=== PATIENT | male | born 1960 | race American Indian/Alaskan Native ===

== ENCOUNTER 2021-02-13 00:49 | Inpatient (IN) | payer MEDICAID, OTHER ==
[2021-02-13] MEDS ORDERED: Iopamidol 612 MG/ML 100 ML Bottle IVPUSH ONE (01:16)
[2021-02-13] MEDS: Sodium Chloride 0.9% 10 ML Syringe FLUSH PRN (01:30)
[2021-02-13] MEDS ORDERED: HYDROmorphone 0.5 MG/0.5 ML Syringe IVPUSH ONE ×2 (01:35→03:11)
--- NOTE | 2021-02-13 01:42 | EDM.PDOC ---
<Sekou Dickens Sharon - Last Filed: 02/13/21 06:56> ED HPI GENERAL MEDICAL PROBLEM - General Chief Complaint: Skin Complaint Stated Complaint: INGROWN HAIR ON BACK OF THE NECK Time Seen by Provider: 02/13/21 01:35 Source of Information: Reports: Patient History Limitations: Reports: No Limitations - History of Present Illness INITIAL COMMENTS - FREE TEXT/NARRATIVE: 60 y/o M c/o ingrwon hair on the back of his head. Pt went to Dr. Hurd in [place] and was placed on antibitoics (Bactrim) for the abscess today. Pt cannot take the pain tonight and is c/o pain, OROPEZA, subjective fevers. Hx of type II diabetes. Denies vision prob, neck stiffness, jaw pain, cp, db, abd pn, ext pain. Treatments [employer]: Reports: Other Medication(s) Left Posterior Neck Pain Score (Numeric/FACES): 9 - Related Data Allergies Allergy/AdvReac Type Severity Reaction Status Date / Time iodine Allergy Severe Anaphylactic Verified 02/13/21 08:11 Shock shellfish derived Allergy Severe Anaphylactic Verified 02/13/21 08:11 Shock venom-honey bee Allergy Severe Anaphylactic Verified 02/13/21 08:11 [bee venom (honey bee)] Shock Penicillins AdvReac Mild Nausea and Verified 02/13/21 08:11 Vomiting Home Meds: Home Meds Acetaminophen [Tylenol] 2 tab PO Q4H PRN 03/26/15 [History] Aspirin [Ecotrin EC] 81 mg PO DAILY 09/17/15 [History] Alogliptin Benzoate [Alogliptin] 25 mg PO DAILY 01/23/19 [History] Cetirizine HCl 10 mg PO ASDIRECTED PRN 01/23/19 [History] DULoxetine [Cymbalta] 60 mg PO DAILY 01/23/19 [History] Insulin Detemir [Levemir Flextouch] 35 units SQ .MORNING 01/23/19 [History] Losartan [Cozaar] 25 mg PO DAILY 01/23/19 [History] Tamsulosin HCl 0.4 mg PO DAILY 01/23/19 [History] atorvaSTATin Calcium [Atorvastatin Calcium] 10 mg PO DAILY 01/23/19 [History] Famotidine 20 mg PO BID 03/21/19 [History] glipiZIDE [Glucotrol] 5 mg PO BID 02/13/21 [History] Doxycycline [Vibra-Tabs] 100 mg PO BID #14 tab 02/15/21 [Rx] Ibuprofen [Motrin] 600 mg PO Q6H PRN tablet 02/15/21 [Rx] Past Medical History HEENT History: Reports: Impaired Vision, Macular Degeneration Other HEENT History: rhetinopathy per patient report Cardiovascular History: Reports: High Cholesterol, Hypertension Respiratory History: Reports: Asthma Gastrointestinal History: Reports: Chronic Constipation, Diverticulosis, Other (See Below) Other Gastrointestinal History: HEARTBURN Genitourinary History: Reports: Prostate Disorder Musculoskeletal History: Reports: Other (See Below) Other Musculoskeletal History: SCIATIC NERVE PAIN Neurological History: Reports: Neuropathy, Diabetic Psychiatric History: Reports: Addiction, Anxiety, Depression Endocrine/Metabolic History: Reports: Diabetes, Type II Hematologic History: Reports: None Immunologic History: Reports: None Oncologic (Cancer) History: Reports: None Dermatologic History: Reports: None - Past Surgical History HEENT Surgical History: Reports: Tonsillectomy Cardiovascular Surgical History: Reports: None GI Surgical History: Reports: Colonoscopy Social & Family History - Family History Family Medical History: No Pertinent Family History - Caffeine Use Caffeine Use: Reports: Soda ED ROS GENERAL - Review of Systems Review Of Systems: Comprehensive ROS is negative, except as noted in HPI. ED EXAM, SKIN/RASH Exam: See Below Exam Limited By: No Limitations General Appearance: Alert, Mild Distress (appears in pain) Ears: Normal External Exam, Normal Canal, Hearing Grossly Normal, Normal TMs Nose: Normal Inspection, Normal Mucosa, No Blood Throat/Mouth: Normal Inspection, Normal Lips, Normal Teeth, Normal Gums, Normal Oropharynx, Normal Voice, No Airway Compromise Head: Other (large 7cm by 5cm abscess to the occiput with open 1cm circular wound draining purulent fluid.) Neck: Supple Respiratory/Chest: No Respiratory Distress, Lungs Clear, Normal Breath Sounds, No Accessory Muscle Use, Chest Non-Tender Cardiovascular: Normal Peripheral Pulses, Regular Rate, Rhythm, No Edema, No Gallop, No JVD, No Murmur, No Rub GI/Abdominal: Soft, Non-Tender Back Exam: Normal Inspection, Full Range of Motion Extremities: Normal Inspection, Normal Range of Motion, Non-Tender, No Pedal Edema, Normal Capillary Refill Course - Re-Assessments/Exams Free Text/Narrative Re-Assessment/Exam: 02/13/21 03:[address] The pt reports a CT yesterday and his CT report was faxed over from [facility]. The report of the CT without contrast detaile a diffuse cutaneous and subcutaneous suboccipital soft tissue swelling with presumed inflammatory phlegmon involving the suboccipital subcu fat. No fluid pockets were noted on the CT however it did state to correlate with the clinical picture. On exam copious amounts of purulent fluid is easily expressed from the open wound on the suboccipital region. Because of this I perfromed and I and D of the area and expressed copious amounts of purulent fluid which I sent a sample for culturing. THe pt expressed some releif in pressure adfter the procedure. The I and D was done using behavioral services tech. 1%lido with epi was ed to anesthetize the area. A lateral 3.5 cm inscision was made into the skin. Purulent fluid was expressed. The wound was explored and found to have loculated pockets of purulent fluid which were broke down using a cotton tip swab. The wound was packed and left open and then dressed. Pt tolerated well with no complications. 02/13/21 06:57 The repeat CMP showed a little improvement in the pts creatinine but I still believe an admission and aggressive rehydration and antibiotics will be beneficial for the pt. I spoke with Dr. Sigala who accepted the patient for inpatient treatment. Departure - Departure Time of Disposition: 06:59 Disposition: Admitted As Inpatient 67 Condition: Fair Clinical Impression: Cellulitis and abscess of head, Acute kidney injury, Hyperglycemia - Discharge Information *PRESCRIPTION DRUG MONITORING PROGRAM REVIEWED*: Not Applicable *COPY OF PRESCRIPTION DRUG MONITORING REPORT IN PATIENT MARTINEZ: Not Applicable Sepsis Event Note (ED) - Evaluation Sepsis Screening Result: No Definite Risk <Elizabeth Pires - Last Filed: 02/15/21 19:49> Course - Vital Signs Last Recorded V/S: Last Vital Signs Temp 98.9 F 02/15/21 08:33 Pulse 84 02/15/21 08:33 Resp 20 02/15/21 08:33 BP 142/87 H 02/15/21 08:50 Pulse Ox 100 02/15/21 08:33 - Orders/Labs/Meds Labs: Laboratory Tests 02/13/21 02/13/21 02/13/21 Range/Units 01:14 01:14 01:14 WBC 15.5 H (5.0-10.0) 10^3/uL RBC 3.72 L (4.6-6.2) 10^6/uL Hgb 11.4 L D (14.0-18.0) g/dL Hct 31.5 L (40.0-54.0) % MCV 84.7 (80-100) fL MCH 30.6 (27.0-34.0) pg MCHC 36.2 H (33.0-35.0) g/dL Plt Count 245 (150-450) 10^3/uL Neut % (Auto) 79.8 H (42.2-75.2) % Lymph % (Auto) 8.6 L (20.5-50.1) % [place] % (Auto) 7.5 (2-8) % Eos % (Auto) 4.0 H (1.0-3.0) % Baso % (Auto) 0.1 (0.0-1.0) % Sodium 131 L (136-145) mmol/L Potassium 4.2 (3.5-5.1) mmol/L Chloride 98 (98-107) mmol/L Carbon Dioxide 22 (21-32) mmol/L Anion Gap 15.2 H (7-13) mEq/L BUN 34 H (7-18) mg/dL Creatinine 2.79 H (0.70-1.30) mg/dL Est Cr Clr Drug Dosing 26.65 mL/min Estimated GFR (MDRD) 23 BUN/Creatinine Ratio 12.2 (No establ ref range) Glucose 558 H* (70-99) mg/dL POC Glucose (70-99) mg/dL Lactic Acid 1.1 (0.4-2.0) mmol/L Calcium 7.9 L (8.5-10.1) mg/dL Total Bilirubin 0.2 (0.2-1.0) mg/dL AST 9 L (15-37) U/L ALT 14 L (16-63) U/L Alkaline Phosphatase 103 (46-116) U/L C-Reactive Protein 17.3 H (0.0-0.9) mg/dL Total Protein 6.6 (6.4-8.2) g/dL Albumin 2.4 L (3.4-5.0) g/dL Globulin 4.2 Albumin/Globulin Ratio 0.57 SARS-CoV-2 RNA (ANN MARIE) (NEGATIVE) 02/13/21 02/13/21 02/13/21 Range/Units 02:16 06:07 06:19 WBC (5.0-10.0) 10^3/uL RBC (4.6-6.2) 10^6/uL Hgb (14.0-18.0) g/dL Hct (40.0-54.0) % MCV (80-100) fL MCH (27.0-34.0) pg MCHC (33.0-35.0) g/dL Plt Count (150-450) 10^3/uL Neut % (Auto) (42.2-75.2) % Lymph % (Auto) (20.5-50.1) % [place] % (Auto) (2-8) % Eos % (Auto) (1.0-3.0) % Baso % (Auto) (0.0-1.0) % Sodium 135 L (136-145) mmol/L Potassium 3.8 (3.5-5.1) mmol/L Chloride 103 (98-107) mmol/L Carbon Dioxide 22 (21-32) mmol/L Anion Gap 13.8 H (7-13) mEq/L BUN 31 H (7-18) mg/dL Creatinine 2.51 H (0.70-1.30) mg/dL Est Cr Clr Drug Dosing 29.63 mL/min Estimated GFR (MDRD) 26 BUN/Creatinine Ratio 12.4 (No establ ref range) Glucose 395 H (70-99) mg/dL POC Glucose 415 H* (70-99) mg/dL Lactic Acid (0.4-2.0) mmol/L Calcium 8.2 L (8.5-10.1) mg/dL Total Bilirubin 0.3 (0.2-1.0) mg/dL AST 8 L (15-37) U/L ALT 16 (16-63) U/L Alkaline Phosphatase 106 (46-116) U/L C-Reactive Protein (0.0-0.9) mg/dL Total Protein 6.9 (6.4-8.2) g/dL Albumin 2.5 L (3.4-5.0) g/dL Globulin 4.4 Albumin/Globulin Ratio 0.57 SARS-CoV-2 RNA (ANN MARIE) Negative (NEGATIVE) Meds: Medications Discontinued Medications Generic Name Dose Route Start Last Admin Trade Name Freq PRN Reason Stop Dose Admin Acetaminophen 650 mg 02/13/21 08:32 Acetaminophen 325 Mg Tab PO Q4H PRN Pain (Mild 1-3)/fever Hydrocodone Bitart/Acetaminophen 1 tab 02/13/21 08:32 02/13/21 22:36 Acetaminophen/Hydrocodone 325-10 Mg Tab PO 1 tab Q4H PRN Administration Pain (severe 7-10) Aspirin 81 mg 02/13/21 09:30 02/15/21 08:50 Aspirin 81 Mg Tab.Ec PO 81 mg DAILY ZAK Administration Atorvastatin Calcium 10 mg 02/13/21 09:30 02/15/21 08:50 Atorvastatin 10 Mg Tab PO 10 mg DAILY ZAK Administration Dextrose/Water 25 ml 02/13/21 08:36 50% Dextrose In Water 50 Ml Syringe IVPUSH ASDIRECTED PRN Hypoglycemia BS<70 Duloxetine HCl 60 mg 02/13/21 09:30 02/15/21 08:50 Duloxetine 30 Mg Cap PO 60 mg DAILY ZAK Administration Famotidine 20 mg 02/13/21 21:00 02/14/21 20:53 Famotidine 20 Mg Tab PO 20 mg BEDTIME ZAK Administration Heparin Sodium (Porcine) 5,000 units 02/13/21 14:00 02/15/21 05:36 Heparin Sodium 5,000 Units/Ml Vial SUBCUT 5,000 units Q8HR ZAK Administration Hydromorphone HCl 0.5 mg 02/13/21 01:35 02/13/21 01:47 Hydromorphone 0.5 Mg/0.5 Ml Syringe IVPUSH 02/13/21 01:36 0.5 mg ONETIME ONE Administration Hydromorphone HCl 0.5 mg 02/13/21 03:11 02/13/21 03:18 Hydromorphone 0.5 Mg/0.5 Ml Syringe IVPUSH 02/13/21 03:12 0.5 mg ONETIME ONE Administration Sodium Chloride 1,000 mls @ 999 mls/hr 02/13/21 02:00 02/13/21 02:10 Normal Saline IV 02/13/21 03:00 999 mls/hr .BOLUS ONE Administration Sodium Chloride 1,000 mls @ 999 mls/hr 02/13/21 02:46 02/13/21 03:56 Normal Saline IV 02/13/21 03:46 999 mls/hr .BOLUS ONE Administration Vancomycin HCl 1.25 gm/ Sodium 250 mls @ 167 mls/hr 02/13/21 03:02 02/13/21 03:15 Chloride IV 02/13/21 04:31 167 mls/hr ONETIME ONE Administration Sodium Chloride 1,000 mls @ 100 mls/hr 02/13/21 08:45 02/15/21 08:47 Normal Saline IV 100 mls/hr ASDIRECTED ZAK Administration Piperacillin Sod/Tazobactam 50 mls @ 100 mls/hr 02/13/21 10:00 02/14/21 10:48 Sod 2.25 gm/ Sodium Chloride IV 100 mls/hr Q6H ZAK Administration Vancomycin HCl 1.25 gm/ Sodium 250 mls @ 167 mls/hr 02/13/21 23:00 02/15/21 00:24 Chloride IV Infused Q24H ZAK Infusion Ibuprofen 600 mg 02/13/21 11:02 02/15/21 05:44 Ibuprofen 600 Mg Tab PO 600 mg Q6H PRN Administration moderate pain Influenza Virus Vaccine 1 each 02/15/21 10:15 02/15/21 11:42 Pharmacy To Dose - Influenza Vaccine IM 1 each DAILY ZAK Administration Influenza Virus Vaccine 60 mcg 02/15/21 10:15 02/15/21 11:39 Flu Vacc [id number](6mos Up)/Pf 60 Mcg/0.5 Ml Syringe IM 02/15/21 10:16 60 mcg .ONCE ONE Administration Insulin Glargine 35 unit 02/13/21 09:30 02/15/21 08:51 Insulin Glarg,Human.Rec.Analog 100 Unit/Ml SUBCUT 35 units DAILY ZAK Administration Insulin Human Lispro 0 unit 02/13/21 09:15 02/15/21 08:51 Insulin Lispro 100 Units/Ml 3 Ml Vial SUBCUT Not [facility] Protocol Iopamidol 100 ml 02/13/21 01:16 02/13/21 06:37 Iopamidol 612 Mg/Ml 100 Ml Bottle IVPUSH 02/13/21 01:17 Not Given ONETIME ONE Iopamidol 50 ml 02/13/21 01:43 02/13/21 01:46 Iopamidol 612 Mg/Ml 50 Ml Sdv IVPUSH 02/13/21 01:44 50 ml ONETIME ONE Administration Lidocaine/Epinephrine 20 ml 02/13/21 03:10 02/13/21 03:18 Lidocaine 1% With Epinephrine 1:100,000 20 Ml Mdv INJECT 02/13/21 03:11 20 ml ONETIME ONE Administration Losartan Potassium 25 mg 02/13/21 09:30 02/15/21 08:50 Losartan 25 Mg Tab PO 25 mg DAILY ZAK Administration Morphine Sulfate 1 mg 02/13/21 08:32 Morphine 2 Mg/Ml Syringe IVPUSH Q4H PRN Pain (severe 7-10) Ondansetron HCl 4 mg 02/13/21 08:32 Ondansetron 4 Mg Tab.Dis PO Q6H PRN nausea, able to take PO Sodium Chloride 10 ml 02/13/21 01:14 02/15/21 08:50 Sodium Chloride 0.9% 10 Ml Syringe FLUSH 10 ml ASDIRECTED PRN Administration Keep Vein Open Tamsulosin HCl 0.4 mg 02/13/21 09:30 02/15/21 08:50 Tamsulosin 0.4 Mg Cap.Er PO 0.4 mg DAILY ZAK Administration Temazepam 15 mg 02/13/21 08:32 02/14/21 23:04 Temazepam 15 Mg Cap PO 15 mg BEDTIME PRN Administration Sleep Vancomycin HCl 1 dose 02/13/21 09:45 Pharmacy To Dose - Vancomycin .XX ASDIRECTED ZAK
[2021-02-13] MEDS ORDERED: Iopamidol 612 MG/ML 50 ML SDV IVPUSH ONE (01:43)
[2021-02-13] MEDS ORDERED: Sodium Chloride 0.9% 1,000 ML IV ONE ×2 (02:00→02:46)
[2021-02-13 02:17] LABS: ANION GAP 15.2 mEq/L (7-13)
[2021-02-13] MEDS ORDERED: Lidocaine 1% with EPINEPHrine 1:100,000 20 ML MDV INJECT ONE (03:10)
[2021-02-13 06:53] LABS: ANION GAP 13.8 mEq/L (7-13)
[2021-02-13] MEDS ORDERED: Ondansetron 4 MG Tab.DIS PO PRN (08:32)
[2021-02-13] MEDS ORDERED: Acetaminophen 325 MG Tab PO PRN (08:32)
[2021-02-13] MEDS ORDERED: Morphine 2 MG/ML SYRINGE IVPUSH PRN (08:32)
[2021-02-13] MEDS ORDERED: 50% Dextrose in Water 50 ML Syringe IVPUSH PRN (08:36)
[2021-02-13] MEDS: Insulin Lispro 100 Units/ML 3 ML Vial SUBCUT SCH ×4 (09:14→20:29)
--- NOTE | 2021-02-13 10:58 | PCM.HP ---
H&P History of Present Illness - General Date of Service: 02/13/21 Admit Problem/Dx: Admission Diagnosis/Problem Admission Diagnosis/Problem Cellulitis and abscess of head Source of Information: Patient - History of Present Illness Initial Comments - Free Text/Narative: h/o dm - poorly controlled, not compliant with insulin, h/o htn, anxiety, meth use - in remission developed redness, hardened area onthe back of hs nec about 10 days prior to admission associated with moderate to severe pain and subjective fever was seen by pmd - given bactrim came to ER - underwent i&D with drainage of purulent fluid Left Posterior Neck Pain Score (Numeric/FACES): 9 - Related Data Allergies/Adverse Reactions: Allergies Allergy/AdvReac Type Severity Reaction Status Date / Time iodine Allergy Severe Anaphylactic Verified 02/13/21 08:11 Shock shellfish derived Allergy Severe Anaphylactic Verified 02/13/21 08:11 Shock venom-honey bee Allergy Severe Anaphylactic Verified 02/13/21 08:11 [bee venom (honey bee)] Shock Penicillins AdvReac Mild Nausea and Verified 02/13/21 08:11 Vomiting Home Medications: Home Meds Acetaminophen [Tylenol] 2 tab PO Q4H PRN 03/26/15 [History] Aspirin [Ecotrin] 81 mg PO DAILY 09/17/15 [History] Alogliptin Benzoate [Alogliptin] 25 mg PO DAILY 01/23/19 [History] Cetirizine HCl 10 mg PO ASDIRECTED PRN 01/23/19 [History] DULoxetine [Cymbalta] 60 mg PO DAILY 01/23/19 [History] Insulin Detemir [Levemir Flextouch] 35 units SQ .MORNING 01/23/19 [History] Losartan [Cozaar] 25 mg PO DAILY 01/23/19 [History] Tamsulosin HCl 0.4 mg PO DAILY 01/23/19 [History] atorvaSTATin Calcium [Atorvastatin Calcium] 10 mg PO DAILY 01/23/19 [History] Famotidine 20 mg PO BID 03/21/19 [History] Insulin Detemir [Levemir Flextouch] 25 unit SQ .BEDTIME 02/13/21 [History] glipiZIDE [Glucotrol] 5 mg PO BID 02/13/21 [History] Past Medical History HEENT History: Reports: Impaired Vision, Macular Degeneration Other HEENT History: retinopathy per patient report Cardiovascular History: Reports: High Cholesterol, Hypertension Respiratory History: Reports: Asthma Gastrointestinal History: Reports: Chronic Constipation, Diverticulosis, Other (See Below) Other Gastrointestinal History: HEARTBURN Genitourinary History: Reports: Prostate Disorder Musculoskeletal History: Reports: Other (See Below) Other Musculoskeletal History: SCIATIC NERVE PAIN. Bone spur right shoulder Neurological History: Reports: Neuropathy, Diabetic Psychiatric History: Reports: Addiction, Anxiety, Depression Endocrine/Metabolic History: Reports: Diabetes, Type II, Obesity/BMI 30+ Hematologic History: Reports: None Immunologic History: Reports: None Oncologic (Cancer) History: Reports: None Dermatologic History: Reports: Eczema - Infectious Disease History Infectious Disease History: Reports: Chicken Pox - Past Surgical History Head Surgeries/Procedures: Reports: None HEENT Surgical History: Reports: Tonsillectomy Cardiovascular Surgical History: Reports: None GI Surgical History: Reports: Colonoscopy Social & Family History - Family History Family Medical History: No Pertinent Family History - Tobacco Use Tobacco Use Status *Q: Light Tobacco User Years of Tobacco use: 20 Packs/Tins Daily: 0.1 - Caffeine Use Caffeine Use: Reports: Coffee, Soda - Recreational Drug Use Recreational Drug Use: No H&P Review of Systems - Review of Systems: Review Of Systems: See Below General: Reports: Fever (subjective), Chills, Malaise Pulmonary: Denies: Shortness of Breath Cardiovascular: Denies: Chest Pain, Edema Skin: Reports: Other (indurated area) Exam - Exam Exam: See Below - Vital Signs Vital Signs: Last Vital Signs Temp 99.0 F 02/13/21 04:00 Pulse 87 02/13/21 04:00 Resp 17 02/13/21 04:00 BP 121/57 L 02/13/21 07:30 Pulse Ox 95 02/13/21 04:00 Weight: 214 lb 12.8 oz - Exam General: Alert, Oriented Neck: Supple Lungs: Clear to Auscultation, Normal Respiratory Effort Cardiovascular: Regular Rate, Regular Rhythm GI/Abdominal Exam: Normal Bowel Sounds, Soft, Non-Tender Rectal (Males) Exam: Normal Exam Extremities: No Pedal Edema Skin: Other (abscess covered) Neuro Extensive - Mental Status: Alert, Oriented x3, Normal Mood/Affect - Patient Data Lab Results Last 24 hrs: Laboratory Results - last 24 hr 02/13/21 02/13/21 02/13/21 Range/Units 01:14 01:14 01:14 WBC 15.5 H (5.0-10.0) 10^3/uL RBC 3.72 L (4.6-6.2) 10^6/uL Hgb 11.4 L D (14.0-18.0) g/dL Hct 31.5 L (40.0-54.0) % MCV 84.7 (80-100) fL MCH 30.6 (27.0-34.0) pg MCHC 36.2 H (33.0-35.0) g/dL Plt Count 245 (150-450) 10^3/uL Neut % (Auto) 79.8 H (42.2-75.2) % Lymph % (Auto) 8.6 L (20.5-50.1) % [place] % (Auto) 7.5 (2-8) % Eos % (Auto) 4.0 H (1.0-3.0) % Baso % (Auto) 0.1 (0.0-1.0) % Sodium 131 L (136-145) mmol/L Potassium 4.2 (3.5-5.1) mmol/L Chloride 98 (98-107) mmol/L Carbon Dioxide 22 (21-32) mmol/L Anion Gap 15.2 H (7-13) mEq/L BUN 34 H (7-18) mg/dL Creatinine 2.79 H (0.70-1.30) mg/dL Est Cr Clr Drug Dosing 26.65 mL/min Estimated GFR (MDRD) 23 BUN/Creatinine Ratio 12.2 (No establ ref range) Glucose 558 H* (70-99) mg/dL POC Glucose (70-99) mg/dL Lactic Acid 1.1 (0.4-2.0) mmol/L Calcium 7.9 L (8.5-10.1) mg/dL Total Bilirubin 0.2 (0.2-1.0) mg/dL AST 9 L (15-37) U/L ALT 14 L (16-63) U/L Alkaline Phosphatase 103 (46-116) U/L C-Reactive Protein 17.3 H (0.0-0.9) mg/dL Total Protein 6.6 (6.4-8.2) g/dL Albumin 2.4 L (3.4-5.0) g/dL Globulin 4.2 Albumin/Globulin Ratio 0.57 SARS-CoV-2 RNA (ANN MARIE) (NEGATIVE) 02/13/21 02/13/21 02/13/21 Range/Units 02:16 06:07 06:19 WBC (5.0-10.0) 10^3/uL RBC (4.6-6.2) 10^6/uL Hgb (14.0-18.0) g/dL Hct (40.0-54.0) % MCV (80-100) fL MCH (27.0-34.0) pg MCHC (33.0-35.0) g/dL Plt Count (150-450) 10^3/uL Neut % (Auto) (42.2-75.2) % Lymph % (Auto) (20.5-50.1) % [place] % (Auto) (2-8) % Eos % (Auto) (1.0-3.0) % Baso % (Auto) (0.0-1.0) % Sodium 135 L (136-145) mmol/L Potassium 3.8 (3.5-5.1) mmol/L Chloride 103 (98-107) mmol/L Carbon Dioxide 22 (21-32) mmol/L Anion Gap 13.8 H (7-13) mEq/L BUN 31 H (7-18) mg/dL Creatinine 2.51 H (0.70-1.30) mg/dL Est Cr Clr Drug Dosing 29.63 mL/min Estimated GFR (MDRD) 26 BUN/Creatinine Ratio 12.4 (No establ ref range) Glucose 395 H (70-99) mg/dL POC Glucose 415 H* (70-99) mg/dL Lactic Acid (0.4-2.0) mmol/L Calcium 8.2 L (8.5-10.1) mg/dL Total Bilirubin 0.3 (0.2-1.0) mg/dL AST 8 L (15-37) U/L ALT 16 (16-63) U/L Alkaline Phosphatase 106 (46-116) U/L C-Reactive Protein (0.0-0.9) mg/dL Total Protein 6.9 (6.4-8.2) g/dL Albumin 2.5 L (3.4-5.0) g/dL Globulin 4.4 Albumin/Globulin Ratio 0.57 SARS-CoV-2 RNA (ANN MARIE) Negative (NEGATIVE) 02/13/21 Range/Units 08:08 WBC (5.0-10.0) 10^3/uL RBC (4.6-6.2) 10^6/uL Hgb (14.0-18.0) g/dL Hct (40.0-54.0) % MCV (80-100) fL MCH (27.0-34.0) pg MCHC (33.0-35.0) g/dL Plt Count (150-450) 10^3/uL Neut % (Auto) (42.2-75.2) % Lymph % (Auto) (20.5-50.1) % [place] % (Auto) (2-8) % Eos % (Auto) (1.0-3.0) % Baso % (Auto) (0.0-1.0) % Sodium (136-145) mmol/L Potassium (3.5-5.1) mmol/L Chloride (98-107) mmol/L Carbon Dioxide (21-32) mmol/L Anion Gap (7-13) mEq/L BUN (7-18) mg/dL Creatinine (0.70-1.30) mg/dL Est Cr Clr Drug Dosing mL/min Estimated GFR (MDRD) BUN/Creatinine Ratio (No establ ref range) Glucose (70-99) mg/dL POC Glucose 404 H* (70-99) mg/dL Lactic Acid (0.4-2.0) mmol/L Calcium (8.5-10.1) mg/dL Total Bilirubin (0.2-1.0) mg/dL AST (15-37) U/L ALT (16-63) U/L Alkaline Phosphatase (46-116) U/L C-Reactive Protein (0.0-0.9) mg/dL Total Protein (6.4-8.2) g/dL Albumin (3.4-5.0) g/dL Globulin Albumin/Globulin Ratio SARS-CoV-2 RNA (ANN MARIE) (NEGATIVE) Result Diagrams: 02/13/21 01:14 02/13/21 06:19 Michael Results Last 24 hrs: Microbiology 02/13/21 03:15 Gram Stain - Final Head - Abscess - Problem List (1) Diabetes SNOMED Code(s): 44464418 ICD Code: E11.9 - TYPE 2 DIABETES MELLITUS WITHOUT COMPLICATIONS Status: Acute Current Visit: Yes (2) Acute kidney injury SNOMED Code(s): 20933753, 73892959 ICD Code: N17.9 - ACUTE KIDNEY FAILURE, UNSPECIFIED Status: Acute Current Visit: No (3) Anxiety SNOMED Code(s): 75353527 ICD Code: F41.9 - ANXIETY DISORDER, UNSPECIFIED Status: Acute Current Visit: No (4) Cellulitis and abscess of head SNOMED Code(s): 49887962, 684663302 ICD Code: L03.811 - CELLULITIS OF HEAD [ANY PART, EXCEPT FACE]; L02.811 - CUTANEOUS ABSCESS OF HEAD [ANY PART, EXCEPT FACE] Status: Acute Current Visit: No (5) Hyperglycemia SNOMED Code(s): 86831800 ICD Code: R73.9 - HYPERGLYCEMIA, UNSPECIFIED Status: Acute Current Visit: No Problem List Initiated/Reviewed/Updated: Yes Orders Last 24hrs: Active Orders 24 hr Category Date Time Status Admission Diagnosis [ADT] Stat ADT 02/13/21 07:00 Ordered Admission Status [Patient Status] [ADT] Routine ADT 02/13/21 07:00 Active Blood Glucose Check, Bedside [RC] ONETIME Care 02/13/21 06:08 Active Blood Glucose Check, Bedside [RC] WITHMEALSANDBED Care 02/13/21 08:36 Active Oxygen Therapy [RC] PRN Care 02/13/21 08:33 Active Peripheral IV Care [RC] . DIRECTED Care 02/13/21 01:15 Active Up With Assistance [RC] ASDIRECTED Care 02/13/21 08:32 Active VTE/DVT Education [RC] PER UNIT ROUTINE Care 02/13/21 08:33 Active Vital Signs [RC] Q4H Care 02/13/21 08:33 Active Consistent Carbohydrate Diet [DIET] Diet 02/13/21 Lunch Active BASIC METABOLIC PANEL,BMP [CHEM] DAILY Lab 02/14/21 05:50 Ordered BASIC METABOLIC PANEL,BMP [CHEM] DAILY Lab 02/15/21 05:50 Ordered BASIC METABOLIC PANEL,BMP [CHEM] DAILY Lab 02/16/21 05:50 Ordered BASIC METABOLIC PANEL,BMP [CHEM] DAILY Lab 02/17/21 05:50 Ordered BASIC METABOLIC PANEL,BMP [CHEM] DAILY Lab 02/18/21 05:50 Ordered CBC WITH AUTO DIFF [HEME] DAILY Lab 02/14/21 05:50 Ordered CBC WITH AUTO DIFF [HEME] DAILY Lab 02/15/21 05:50 Ordered CBC WITH AUTO DIFF [HEME] DAILY Lab 02/16/21 05:50 Ordered CBC WITH AUTO DIFF [HEME] DAILY Lab 02/17/21 05:50 Ordered CBC WITH AUTO DIFF [HEME] DAILY Lab 02/18/21 05:50 Ordered CULTURE BLOOD [BC] Stat Lab 02/13/21 01:15 Ordered CULTURE BLOOD [BC] Stat Lab 02/13/21 01:15 Ordered CULTURE WOUND + SMEAR [RM] Stat Lab 02/13/21 03:15 Results VANCOMYCIN TROUGH [CHEM] Timed Lab 02/16/21 22:30 Ordered Acetaminophen [TylenoL] Med 02/13/21 08:32 Active 650 mg PO Q4H PRN Acetaminophen/HYDROcodone [[place] 325-10 MG] Med 02/13/21 08:32 Active 1 tab PO Q4H PRN Aspirin [Halfprin] Med 02/13/21 09:30 Active 81 mg PO DAILY DULoxetine [Cymbalta] Med 02/13/21 09:30 Active 60 mg PO DAILY Dextrose 50% in Water Med 02/13/21 08:36 Active 25 ml IVPUSH ASDIRECTED PRN Famotidine [Pepcid] Med 02/13/21 21:00 Active 20 mg PO BEDTIME Heparin Sodium Med 02/13/21 14:00 Active 5,000 units SUBCUT Q8HR Insulin Glarg,Human.Rec.Analog [LantUS] Med 02/13/21 09:30 Active 35 unit SUBCUT DAILY Insulin Lispro [HumaLOG] Med 02/13/21 09:15 Active See Protocol SUBCUT WITHMEALSANDBED Losartan [Cozaar] Med 02/13/21 09:30 Active 25 mg PO DAILY Morphine Med 02/13/21 08:32 Active 1 mg IVPUSH Q4H PRN Ondansetron [Zofran ODT] Med 02/13/21 08:32 Active 4 mg PO Q6H PRN Pharmacy to Dose - Vancomycin Med 02/13/21 09:45 Pending 1 dose .XX ASDIRECTED Piperacillin/Tazobactam [Zosyn] 2.25 gm Med 02/13/21 10:00 Active Sodium Chloride 0.9% [Normal Saline] 50 ml IV Q6H Sodium Chloride 0.9% [Normal Saline] 1,000 ml Med 02/13/21 08:45 Active IV ASDIRECTED Sodium Chloride 0.9% [Saline Flush] Med 02/13/21 01:14 Active 10 ml FLUSH ASDIRECTED PRN Tamsulosin [Flomax] Med 02/13/21 09:30 Active 0.4 mg PO DAILY Temazepam [Restoril] Med 02/13/21 08:32 Active 15 mg PO BEDTIME PRN Vancomycin 1.25 gm Med 02/13/21 23:00 Active Sodium Chloride 0.9% [Normal Saline AdvBag] 250 ml IV Q24H atorvaSTATin [Lipitor] Med 02/13/21 09:30 Active 10 mg PO DAILY Blood Culture x2 Reflex Set [OM.PC] Stat Oth 02/13/21 01:14 Ordered Peripheral IV Insertion Adult [OM.PC] Routine Oth 02/13/21 01:14 Ordered Resuscitation Status Routine Resus Stat 02/13/21 08:32 Ordered Medication Orders Acetaminophen (Acetaminophen 325 Mg Tab) 650 mg PO Q4H PRN PRN Reason: Pain (Mild 1-3)/fever Hydrocodone Bitart/Acetaminophen (Acetaminophen/Hydrocodone 325-10 Mg Tab) 1 tab PO Q4H PRN PRN Reason: Pain (moderate 4-6) Aspirin (Aspirin 81 Mg Tab.Ec) 81 mg PO DAILY [facility] Atorvastatin Calcium (Atorvastatin 10 Mg Tab) 10 mg PO DAILY [facility] Dextrose/Water (50% Dextrose In Water 50 Ml Syringe) 25 ml IVPUSH ASDIRECTED PRN PRN Reason: Hypoglycemia BS<70 Duloxetine HCl (Duloxetine 30 Mg Cap) 60 mg PO DAILY [facility] Famotidine (Famotidine 20 Mg Tab) 20 mg PO BEDTIME [facility] Heparin Sodium (Porcine) (Heparin Sodium 5,000 Units/Ml Vial) 5,000 units SUBCUT Q8HR [facility] Sodium Chloride (Normal Saline) 1,000 mls @ 100 mls/hr IV ASDIRECTED [facility] Piperacillin Sod/Tazobactam (Sod 2.25 gm/ Sodium Chloride) 50 mls @ 100 mls/hr IV Q6H [facility] Vancomycin HCl 1.25 gm/ Sodium (Chloride) 250 mls @ 167 mls/hr IV Q24H [facility] Insulin Glargine (Insulin Glarg,Human.Rec.Analog 100 Unit/Ml) 35 unit SUBCUT DAILY [facility] Insulin Human Lispro (Insulin Lispro 100 Units/Ml 3 Ml Vial) 0 unit SUBCUT WITHMEALSANDBED [facility]; Protocol Last Admin: 02/13/21 09:14 Dose: 10 units Documented by: [id number] Losartan Potassium (Losartan 25 Mg Tab) 25 mg PO DAILY [facility] Morphine Sulfate (Morphine 2 Mg/Ml Syringe) 1 mg IVPUSH Q4H PRN PRN Reason: Pain (severe 7-10) Ondansetron HCl (Ondansetron 4 Mg Tab.Dis) 4 mg PO Q6H PRN PRN Reason: nausea, able to take PO Sodium Chloride (Sodium Chloride 0.9% 10 Ml Syringe) 10 ml FLUSH ASDIRECTED PRN PRN Reason: Keep Vein Open Last Admin: 02/13/21 01:30 Dose: 10 ml Documented by: NICOLASA Tamsulosin HCl (Tamsulosin 0.4 Mg Cap.Er) 0.4 mg PO DAILY [facility] Temazepam (Temazepam 15 Mg Cap) 15 mg PO BEDTIME PRN PRN Reason: Sleep Vancomycin HCl (Pharmacy To Dose - Vancomycin) 1 dose .XX ASDIRECTED [facility] Assessment/Plan Comment:: Cellulitis with abscess In a pt with poorly controlled DM s/p I&D in ER blood cx: pending wound cx: pending treat with zosyn, vancomycin SABIHA with h/o ckd II-III Baseline cr 1.4 Hydrate well Follow elytes and renal fx Control BS Uncontrolled dm Last hgb a1c 9.6 Hydrate well Restart Levemir Add supplemental insulin and hypoglycemia tx as needed Htn Treat with Losartan h/o meth addiction careful with narcs use NSAIDs for pain Dvt prophylaxis with sq heparin
[2021-02-13] MEDS ORDERED: Ibuprofen 600 MG Tab PO PRN (11:02)
[2021-02-13] MEDS: Tamsulosin 0.4 MG Cap.ER PO SCH (11:40)
[2021-02-13] MEDS: Aspirin 81 MG Tab.EC PO SCH (11:40)
[2021-02-13] MEDS: atorvaSTATin 10 MG Tab PO SCH (11:40)
[2021-02-13] MEDS: DULoxetine 30 MG Cap PO SCH (11:40)
[2021-02-13] MEDS: Insulin Glarg,Human.Rec.Analog 100 Unit/ML SUBCUT SCH (11:40)
[2021-02-13] MEDS: Losartan 25 MG Tab PO SCH (11:40)
[2021-02-13] MEDS: Sodium Chloride 0.9% 1,000 ML IV SCH (12:39)
[2021-02-13] MEDS: Piperacillin/Tazobactam 2.25 GM in Sodium Chloride 0.9% 50 ML IV SCH ×3 (12:39→22:30)
[2021-02-13] MEDS: Acetaminophen/HYDROcodone 325-10 MG Tab PO PRN ×2 (16:15→22:36)
[2021-02-13] MEDS: Heparin Sodium 5,000 Units/ML Vial SUBCUT SCH ×2 (17:40→22:36)
[2021-02-13] MEDS: Famotidine 20 MG Tab PO SCH (20:29)
[2021-02-13] MEDS: Temazepam 15 MG Cap PO PRN (22:35)
[2021-02-14] MEDS: Sodium Chloride 0.9% 1,000 ML IV SCH ×3 (00:34→20:50)
[2021-02-14] MEDS: Piperacillin/Tazobactam 2.25 GM in Sodium Chloride 0.9% 50 ML IV SCH ×2 (03:55→10:48)
[2021-02-14] MEDS: Heparin Sodium 5,000 Units/ML Vial SUBCUT SCH ×3 (05:57→21:04)
[2021-02-14] MEDS: Insulin Lispro 100 Units/ML 3 ML Vial SUBCUT SCH ×4 (08:47→20:54)
[2021-02-14] MEDS: Aspirin 81 MG Tab.EC PO SCH (08:48)
[2021-02-14] MEDS: atorvaSTATin 10 MG Tab PO SCH (08:48)
[2021-02-14] MEDS: DULoxetine 30 MG Cap PO SCH (08:48)
[2021-02-14] MEDS: Tamsulosin 0.4 MG Cap.ER PO SCH (08:49)
[2021-02-14] MEDS: Losartan 25 MG Tab PO SCH (08:50)
[2021-02-14] MEDS: Insulin Glarg,Human.Rec.Analog 100 Unit/ML SUBCUT SCH (08:57)
--- NOTE | 2021-02-14 15:22 | PCM.PN ---
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 no associated fever no diarrhea - Patient Data Vitals - Most Recent: Last Vital Signs Temp 97.8 F 02/14/21 12:00 Pulse 86 02/14/21 12:00 Resp 20 02/14/21 12:00 BP 146/78 H 02/14/21 12:00 Pulse Ox 98 02/14/21 12:00 Weight - Most Recent: 214 lb 12.8 oz I&O - Last 24 Hours: Intake & Output 02/14/21 02/14/21 02/14/21 06:59 14:59 22:59 Intake Total 50 960 Balance 50 960 Lab Results Last 24 Hours: Laboratory Results - last 24 hr 02/13/21 02/13/21 02/14/21 Range/Units 16:41 20:06 06:00 WBC 11.9 H (5.0-10.0) 10^3/uL RBC 3.46 L (4.6-6.2) 10^6/uL Hgb 10.4 L (14.0-18.0) g/dL Hct 29.9 L (40.0-54.0) % MCV 86.4 (80-100) fL MCH 30.1 (27.0-34.0) pg MCHC 34.8 (33.0-35.0) g/dL Plt Count 270 (150-450) 10^3/uL Neut % (Auto) 67.3 (42.2-75.2) % Lymph % (Auto) 16.3 L (20.5-50.1) % Bonner % (Auto) 7.9 (2-8) % Eos % (Auto) 8.2 H (1.0-3.0) % Baso % (Auto) 0.3 (0.0-1.0) % Sodium (136-145) mmol/L Potassium (3.5-5.1) mmol/L Chloride (98-107) mmol/L Carbon Dioxide (21-32) mmol/L Anion Gap (7-13) mEq/L BUN (7-18) mg/dL Creatinine (0.70-1.30) mg/dL Est Cr Clr Drug Dosing mL/min Estimated GFR (MDRD) Glucose (70-99) mg/dL POC Glucose 319 H 252 H (70-99) mg/dL Calcium (8.5-10.1) mg/dL 02/14/21 02/14/21 02/14/21 Range/Units 06:00 08:12 11:49 WBC (5.0-10.0) 10^3/uL RBC (4.6-6.2) 10^6/uL Hgb (14.0-18.0) g/dL Hct (40.0-54.0) % MCV (80-100) fL MCH (27.0-34.0) pg MCHC (33.0-35.0) g/dL Plt Count (150-450) 10^3/uL Neut % (Auto) (42.2-75.2) % Lymph % (Auto) (20.5-50.1) % Bonner % (Auto) (2-8) % Eos % (Auto) (1.0-3.0) % Baso % (Auto) (0.0-1.0) % Sodium 140 (136-145) mmol/L Potassium 4.0 (3.5-5.1) mmol/L Chloride 109 H (98-107) mmol/L Carbon Dioxide 21 (21-32) mmol/L Anion Gap 14.0 H (7-13) mEq/L BUN 31 H (7-18) mg/dL Creatinine 2.30 H (0.70-1.30) mg/dL Est Cr Clr Drug Dosing 33.46 mL/min Estimated GFR (MDRD) 29 Glucose 122 H (70-99) mg/dL POC Glucose 127 H 224 H (70-99) mg/dL Calcium 8.4 L (8.5-10.1) mg/dL Michael Results Last 24 Hours: Microbiology 02/13/21 03:15 Gram Stain - Final Head - Abscess Wound Culture - Preliminary Med Orders - Current: Current Medications Acetaminophen (Acetaminophen 325 Mg Tab) 650 mg PO Q4H PRN PRN Reason: Pain (Mild 1-3)/fever Hydrocodone Bitart/Acetaminophen (Acetaminophen/Hydrocodone 325-10 Mg Tab) 1 tab PO Q4H PRN PRN Reason: Pain (severe 7-10) Last Admin: 02/13/21 22:36 Dose: 1 tab Documented by: Aspirin (Aspirin 81 Mg Tab.Ec) 81 mg PO DAILY [facility] Last Admin: 02/14/21 08:48 Dose: 81 mg Documented by: Atorvastatin Calcium (Atorvastatin 10 Mg Tab) 10 mg PO DAILY [facility] Last Admin: 02/14/21 08:48 Dose: 10 mg Documented by: Dextrose/Water (50% Dextrose In Water 50 Ml Syringe) 25 ml IVPUSH ASDIRECTED PRN PRN Reason: Hypoglycemia BS<70 Duloxetine HCl (Duloxetine 30 Mg Cap) 60 mg PO DAILY [facility] Last Admin: 02/14/21 08:48 Dose: 60 mg Documented by: Famotidine (Famotidine 20 Mg Tab) 20 mg PO BEDTIME [facility] Last Admin: 02/13/21 20:29 Dose: 20 mg Documented by: Heparin Sodium (Porcine) (Heparin Sodium 5,000 Units/Ml Vial) 5,000 units SUBCUT Q8HR [facility] Last Admin: 02/14/21 13:33 Dose: 5,000 units Documented by: Sodium Chloride (Normal Saline) 1,000 mls @ 100 mls/hr IV ASDIRECTED [facility] Last Admin: 02/14/21 11:55 Dose: 100 mls/hr Documented by: Piperacillin Sod/Tazobactam (Sod 2.25 gm/ Sodium Chloride) 50 mls @ 100 mls/hr IV Q6H [facility] Last Admin: 02/14/21 10:48 Dose: 100 mls/hr Documented by: Vancomycin HCl 1.25 gm/ Sodium (Chloride) 250 mls @ 167 mls/hr IV Q24H [facility] Last Admin: 02/13/21 23:10 Dose: 167 mls/hr Documented by: Ibuprofen (Ibuprofen 600 Mg Tab) 600 mg PO Q6H PRN PRN Reason: moderate pain Insulin Glargine (Insulin Glarg,Human.Rec.Analog 100 Unit/Ml) 35 unit SUBCUT DAILY [facility] Last Admin: 02/14/21 08:57 Dose: 35 units Documented by: Insulin Human Lispro (Insulin Lispro 100 Units/Ml 3 Ml Vial) 0 unit SUBCUT WITHMEALSANDBED [facility]; Protocol Last Admin: 02/14/21 13:33 Dose: 4 units Documented by: Losartan Potassium (Losartan 25 Mg Tab) 25 mg PO DAILY [facility] Last Admin: 02/14/21 08:50 Dose: 25 mg Documented by: Ondansetron HCl (Ondansetron 4 Mg Tab.Dis) 4 mg PO Q6H PRN PRN Reason: nausea, able to take PO Sodium Chloride (Sodium Chloride 0.9% 10 Ml Syringe) 10 ml FLUSH ASDIRECTED PRN PRN Reason: Keep Vein Open Last Admin: 02/13/21 01:30 Dose: 10 ml Documented by: Tamsulosin HCl (Tamsulosin 0.4 Mg Cap.Er) 0.4 mg PO DAILY [facility] Last Admin: 02/14/21 08:49 Dose: 0.4 mg Documented by: Temazepam (Temazepam 15 Mg Cap) 15 mg PO BEDTIME PRN PRN Reason: Sleep Last Admin: 02/13/21 22:35 Dose: 15 mg Documented by: Vancomycin HCl (Pharmacy To Dose - Vancomycin) 1 dose .XX ASDIRECTED ZAK Discontinued Medications Hydromorphone HCl (Hydromorphone 0.5 Mg/0.5 Ml Syringe) 0.5 mg IVPUSH ONETIME ONE Stop: 02/13/21 01:36 Last Admin: 02/13/21 01:47 Dose: 0.5 mg Documented by: Hydromorphone HCl (Hydromorphone 0.5 Mg/0.5 Ml Syringe) 0.5 mg IVPUSH ONETIME ONE Stop: 02/13/21 03:12 Last Admin: 02/13/21 03:18 Dose: 0.5 mg Documented by: Sodium Chloride (Normal Saline) 1,000 mls @ 999 mls/hr IV .BOLUS ONE Stop: 02/13/21 03:00 Last Admin: 02/13/21 02:10 Dose: 999 mls/hr Documented by: Sodium Chloride (Normal Saline) 1,000 mls @ 999 mls/hr IV .BOLUS ONE Stop: 02/13/21 03:46 Last Admin: 02/13/21 03:56 Dose: 999 mls/hr Documented by: Vancomycin HCl 1.25 gm/ Sodium (Chloride) 250 mls @ 167 mls/hr IV ONETIME ONE Stop: 02/13/21 04:31 Last Admin: 02/13/21 03:15 Dose: 167 mls/hr Documented by: Iopamidol (Iopamidol 612 Mg/Ml 100 Ml Bottle) 100 ml IVPUSH ONETIME ONE Stop: 02/13/21 01:17 Last Admin: 02/13/21 06:37 Dose: Not Given Documented by: Iopamidol (Iopamidol 612 Mg/Ml 50 Ml Sdv) 50 ml IVPUSH ONETIME ONE Stop: 02/13/21 01:44 Last Admin: 02/13/21 01:46 Dose: 50 ml Documented by: Lidocaine/Epinephrine (Lidocaine 1% With Epinephrine 1:100,000 20 Ml Mdv) 20 ml INJECT ONETIME ONE Stop: 02/13/21 03:11 Last Admin: 02/13/21 03:18 Dose: 20 ml Documented by: Morphine Sulfate (Morphine 2 Mg/Ml Syringe) 1 mg IVPUSH Q4H PRN PRN Reason: Pain (severe 7-10) - Exam General: Alert, Oriented Neck: Supple Lungs: Clear to Auscultation, Normal Respiratory Effort Cardiovascular: Regular Rate, Regular Rhythm GI/Abdominal Exam: Normal Bowel Sounds, Soft, Non-Tender Extremities: No Pedal Edema Skin: Other (I&D wound on posterior neck ) - Patient Data Lab Results Last 24 hrs: Laboratory Results - last 24 hr 02/13/21 02/13/21 02/14/21 Range/Units 16:41 20:06 06:00 WBC 11.9 H (5.0-10.0) 10^3/uL RBC 3.46 L (4.6-6.2) 10^6/uL Hgb 10.4 L (14.0-18.0) g/dL Hct 29.9 L (40.0-54.0) % MCV 86.4 (80-100) fL MCH 30.1 (27.0-34.0) pg MCHC 34.8 (33.0-35.0) g/dL Plt Count 270 (150-450) 10^3/uL Neut % (Auto) 67.3 (42.2-75.2) % Lymph % (Auto) 16.3 L (20.5-50.1) % Bonner % (Auto) 7.9 (2-8) % Eos % (Auto) 8.2 H (1.0-3.0) % Baso % (Auto) 0.3 (0.0-1.0) % Sodium (136-145) mmol/L Potassium (3.5-5.1) mmol/L Chloride (98-107) mmol/L Carbon Dioxide (21-32) mmol/L Anion Gap (7-13) mEq/L BUN (7-18) mg/dL Creatinine (0.70-1.30) mg/dL Est Cr Clr Drug Dosing mL/min Estimated GFR (MDRD) Glucose (70-99) mg/dL POC Glucose 319 H 252 H (70-99) mg/dL Calcium (8.5-10.1) mg/dL 02/14/21 02/14/21 02/14/21 Range/Units 06:00 08:12 11:49 WBC (5.0-10.0) 10^3/uL RBC (4.6-6.2) 10^6/uL Hgb (14.0-18.0) g/dL Hct (40.0-54.0) % MCV (80-100) fL MCH (27.0-34.0) pg MCHC (33.0-35.0) g/dL Plt Count (150-450) 10^3/uL Neut % (Auto) (42.2-75.2) % Lymph % (Auto) (20.5-50.1) % Bonner % (Auto) (2-8) % Eos % (Auto) (1.0-3.0) % Baso % (Auto) (0.0-1.0) % Sodium 140 (136-145) mmol/L Potassium 4.0 (3.5-5.1) mmol/L Chloride 109 H (98-107) mmol/L Carbon Dioxide 21 (21-32) mmol/L Anion Gap 14.0 H (7-13) mEq/L BUN 31 H (7-18) mg/dL Creatinine 2.30 H (0.70-1.30) mg/dL Est Cr Clr Drug Dosing 33.46 mL/min Estimated GFR (MDRD) 29 Glucose 122 H (70-99) mg/dL POC Glucose 127 H 224 H (70-99) mg/dL Calcium 8.4 L (8.5-10.1) mg/dL Result Diagrams: 02/14/21 06:00 02/14/21 06:00 Michael Results Last 24 hrs: Microbiology 02/13/21 03:15 Gram Stain - Final Head - Abscess Wound Culture - Preliminary Sepsis Event Note - Evaluation Sepsis Screening Result: No Definite Risk - Focused Exam Vital Signs: Vital Signs Temp Pulse Resp BP BP BP Pulse Ox 02/14/21 12:00 97.8 F 86 20 146/78 H 98 02/14/21 08:50 147/80 H 02/14/21 08:33 02/14/21 08:31 97.6 F 87 20 147/80 H 98 Pulse Ox 02/14/21 12:00 02/14/21 08:50 02/14/21 08:33 98 02/14/21 08:31 - Problem List & Annotations (1) Diabetes SNOMED Code(s): 56154983 Code(s): E11.9 - TYPE 2 DIABETES MELLITUS WITHOUT COMPLICATIONS Status: Acute Current Visit: Yes (2) Acute kidney injury SNOMED Code(s): 34101527, 03528543 Code(s): N17.9 - ACUTE KIDNEY FAILURE, UNSPECIFIED Status: Acute Current Visit: No (3) Anxiety SNOMED Code(s): 27185945 Code(s): F41.9 - ANXIETY DISORDER, UNSPECIFIED Status: Acute Current Visit: No (4) Cellulitis and abscess of head SNOMED Code(s): 36592467, 531904451 Code(s): L03.811 - CELLULITIS OF HEAD [ANY PART, EXCEPT FACE]; L02.811 - CUTANEOUS ABSCESS OF HEAD [ANY PART, EXCEPT FACE] Status: Acute Current Visit: No (5) Hyperglycemia SNOMED Code(s): 39054362 Code(s): R73.9 - HYPERGLYCEMIA, UNSPECIFIED Status: Acute Current Visit: No - Problem List Review Problem List Initiated/Reviewed/Updated: Yes - My Orders Last 24 Hours: My Active Orders 02/13/21 21:00 Famotidine [Pepcid] 20 mg PO BEDTIME 02/15/21 05:50 BASIC METABOLIC PANEL,BMP [CHEM] DAILY CBC WITH AUTO DIFF [HEME] DAILY 02/16/21 05:50 BASIC METABOLIC PANEL,BMP [CHEM] DAILY CBC WITH AUTO DIFF [HEME] DAILY 02/16/21 22:30 VANCOMYCIN TROUGH [CHEM] Timed 02/17/21 05:50 BASIC METABOLIC PANEL,BMP [CHEM] DAILY CBC WITH AUTO DIFF [HEME] DAILY 11/25/21 05:50 BASIC METABOLIC PANEL,BMP [CHEM] DAILY CBC WITH AUTO DIFF [HEME] DAILY - Plan Plan:: Cellulitis with abscess In a pt with poorly controlled DM s/p I&D in ER blood cx: pending wound cx: gram pos cocci, suspect Staph - further ID&S pending treat with vancomycin stop Zosyn SABIHA with h/o ckd II-III Baseline cr 1.4 improving Hydrate well Follow elytes and renal fx Control BS Uncontrolled dm Last hgb a1c 9.6 Hydrate well Restart Levemir cont supplemental insulin and hypoglycemia tx as needed discussed importance of home treatment Htn Treat with Losartan h/o meth addiction careful with narcs use NSAIDs for pain Dvt prophylaxis with sq heparin
[2021-02-14] MEDS: Famotidine 20 MG Tab PO SCH (20:53)
[2021-02-14] MEDS: Temazepam 15 MG Cap PO PRN (23:04)
[2021-02-15] MEDS: Heparin Sodium 5,000 Units/ML Vial SUBCUT SCH (05:36)
[2021-02-15 06:35] LABS: ANION GAP 13.3 mEq/L (7-13)
[2021-02-15 08:33] VITALS: BP 142/87; PULSE 84
[2021-02-15] MEDS: Sodium Chloride 0.9% 1,000 ML IV SCH (08:47)
[2021-02-15] MEDS: atorvaSTATin 10 MG Tab PO SCH (08:50)
[2021-02-15] MEDS: Sodium Chloride 0.9% 10 ML Syringe FLUSH PRN (08:50)
[2021-02-15] MEDS: Aspirin 81 MG Tab.EC PO SCH (08:50)
[2021-02-15] MEDS: Tamsulosin 0.4 MG Cap.ER PO SCH (08:50)
[2021-02-15] MEDS: Losartan 25 MG Tab PO SCH (08:50)
[2021-02-15] MEDS: DULoxetine 30 MG Cap PO SCH (08:50)
[2021-02-15] MEDS: Insulin Lispro 100 Units/ML 3 ML Vial SUBCUT SCH (08:51)
[2021-02-15] MEDS: Insulin Glarg,Human.Rec.Analog 100 Unit/ML SUBCUT SCH (08:51)
--- NOTE | 2021-02-15 09:55 | PCM.DCSUM1 ---
Discharge Summary - Hospital Course Free Text/Narrative:: presented with abscess on the back of the neck Cellulitis with abscess In a pt with poorly controlled DM s/p I&D in ER blood cx: neg for now wound cx: MRSA treated with vancomycin will transition to doxycycline continue wound packing SABIHA with h/o ckd II-III Baseline cr 1.4 improving Follow elytes and renal fx as out pt Control BSugar Uncontrolled dm Last hgb a1c 9.6 Restart Levemir discussed importance of home treatment Htn Treat with Losartan h/o meth addiction careful with narcs use NSAIDs for pain Diagnosis: Stroke: No - Discharge Data Discharge Date: 02/15/21 Discharge Disposition: Home, Self-Care 01 Condition: Good - Referral to Home Health Primary Care Physician: PCP None - Discharge Diagnosis/Problem(s) (1) Diabetes SNOMED Code(s): 92163525 ICD Code: E11.9 - TYPE 2 DIABETES MELLITUS WITHOUT COMPLICATIONS Status: Acute Current Visit: Yes Qualifiers: Diabetes mellitus type: type 2 (2) Acute kidney injury SNOMED Code(s): 04155356, 88767799 ICD Code: N17.9 - ACUTE KIDNEY FAILURE, UNSPECIFIED Status: Acute Current Visit: No (3) Anxiety SNOMED Code(s): 39773015 ICD Code: F41.9 - ANXIETY DISORDER, UNSPECIFIED Status: Acute Current Visit: No (4) Cellulitis and abscess of head SNOMED Code(s): 98135988, 075256469 ICD Code: L03.811 - CELLULITIS OF HEAD [ANY PART, EXCEPT FACE]; L02.811 - CUTANEOUS ABSCESS OF HEAD [ANY PART, EXCEPT FACE] Status: Acute Current Visit: No (5) Hyperglycemia SNOMED Code(s): 24696340 ICD Code: R73.9 - HYPERGLYCEMIA, UNSPECIFIED Status: Acute Current Visit: No - Patient Instructions Diet: Heart Healthy Diet Activity: As Tolerated - Discharge Plan *PRESCRIPTION DRUG MONITORING PROGRAM REVIEWED*: Not Applicable *COPY OF PRESCRIPTION DRUG MONITORING REPORT IN PATIENT MARTINEZ: Not Applicable Prescriptions/Med Rec: Doxycycline [Vibra-Tabs] 100 mg PO BID #14 tab Home Medications: Home Meds Acetaminophen [Tylenol] 2 tab PO Q4H PRN 03/26/15 [History] Aspirin [Ecotrin EC] 81 mg PO DAILY 09/17/15 [History] Alogliptin Benzoate [Alogliptin] 25 mg PO DAILY 01/23/19 [History] Cetirizine HCl 10 mg PO ASDIRECTED PRN 01/23/19 [History] DULoxetine [Cymbalta] 60 mg PO DAILY 01/23/19 [History] Insulin Detemir [Levemir Flextouch] 35 units SQ .MORNING 01/23/19 [History] Losartan [Cozaar] 25 mg PO DAILY 01/23/19 [History] Tamsulosin HCl 0.4 mg PO DAILY 01/23/19 [History] atorvaSTATin Calcium [Atorvastatin Calcium] 10 mg PO DAILY 01/23/19 [History] Famotidine 20 mg PO BID 03/21/19 [History] glipiZIDE [Glucotrol] 5 mg PO BID 02/13/21 [History] Doxycycline [Vibra-Tabs] 100 mg PO BID #14 tab 02/15/21 [Rx] Ibuprofen [Motrin] 600 mg PO Q6H PRN tablet 02/15/21 [Rx] Oxygen Therapy Mode: Room Air Referrals: PCP,None [Primary Care Provider] - ([facility], in [place]) - Discharge Summary/Plan Comment DC Time >30 min.: No Total # of Minutes for Discharge Time: 20 min - General Info Date of Service: 02/15/21 Functional Status: Reports: Pain Controlled, Tolerating Diet - Review of Systems General: Denies: Fever Pulmonary: Denies: Shortness of Breath Cardiovascular: Denies: Chest Pain, Edema Gastrointestinal: Denies: Abdominal Pain - Patient Data Vitals - Most Recent: Last Vital Signs Temp 98.9 F 02/15/21 08:33 Pulse 84 02/15/21 08:33 Resp 20 02/15/21 08:33 BP 142/87 H 02/15/21 08:50 Pulse Ox 100 02/15/21 08:33 Weight - Most Recent: 214 lb 12.8 oz I&O - Last 24 hours: Intake & Output 02/14/21 02/15/21 02/15/21 22:59 06:59 14:59 Intake Total 2484 750 Output Total 350 300 Balance 2134 450 Lab Results - Last 24 hrs: Laboratory Results - last 24 hr 02/14/21 02/14/21 02/14/21 Range/Units 11:49 16:45 19:53 WBC (5.0-10.0) 10^3/uL RBC (4.6-6.2) 10^6/uL Hgb (14.0-18.0) g/dL Hct (40.0-54.0) % MCV (80-100) fL MCH (27.0-34.0) pg MCHC (33.0-35.0) g/dL Plt Count (150-450) 10^3/uL Neut % (Auto) (42.2-75.2) % Lymph % (Auto) (20.5-50.1) % Potter % (Auto) (2-8) % Eos % (Auto) (1.0-3.0) % Baso % (Auto) (0.0-1.0) % Add Manual Diff Neutrophils % (Manual) (42-75) % Band Neutrophils % % Lymphocytes % (Manual) (20-50) % Monocytes % (Manual) (2-8) % Eosinophils % (Manual) (1-3) % Sodium (136-145) mmol/L Potassium (3.5-5.1) mmol/L Chloride (98-107) mmol/L Carbon Dioxide (21-32) mmol/L Anion Gap (7-13) mEq/L BUN (7-18) mg/dL Creatinine (0.70-1.30) mg/dL Est Cr Clr Drug Dosing mL/min Estimated GFR (MDRD) Glucose (70-99) mg/dL POC Glucose 224 H 237 H 232 H (70-99) mg/dL Calcium (8.5-10.1) mg/dL 02/15/21 02/15/21 02/15/21 Range/Units 05:47 05:47 07:56 WBC 9.6 (5.0-10.0) 10^3/uL RBC 3.43 L (4.6-6.2) 10^6/uL Hgb 10.3 L (14.0-18.0) g/dL Hct 29.6 L (40.0-54.0) % MCV 86.3 (80-100) fL MCH 30.0 (27.0-34.0) pg MCHC 34.8 (33.0-35.0) g/dL Plt Count 303 (150-450) 10^3/uL Neut % (Auto) 61.4 (42.2-75.2) % Lymph % (Auto) 21.5 (20.5-50.1) % Potter % (Auto) 8.2 H (2-8) % Eos % (Auto) 8.6 H (1.0-3.0) % Baso % (Auto) 0.3 (0.0-1.0) % Add Manual Diff Yes Neutrophils % (Manual) 63 (42-75) % Band Neutrophils % 4 % Lymphocytes % (Manual) 21 (20-50) % Monocytes % (Manual) 8 (2-8) % Eosinophils % (Manual) 4 H (1-3) % Sodium 142 (136-145) mmol/L Potassium 4.3 (3.5-5.1) mmol/L Chloride 110 H (98-107) mmol/L Carbon Dioxide 23 (21-32) mmol/L Anion Gap 13.3 H (7-13) mEq/L BUN 24 H (7-18) mg/dL Creatinine 2.03 H (0.70-1.30) mg/dL Est Cr Clr Drug Dosing 37.91 mL/min Estimated GFR (MDRD) 34 Glucose 101 H (70-99) mg/dL POC Glucose 105 H (70-99) mg/dL Calcium 8.7 (8.5-10.1) mg/dL JASIEL Results - Last 24 hrs: Microbiology 02/13/21 03:15 Gram Stain - Final Head - Abscess Wound Culture - Final (Mrsa) Staphylococcus Aureus Med Orders - Current: Current Medications Acetaminophen (Acetaminophen 325 Mg Tab) 650 mg PO Q4H PRN PRN Reason: Pain (Mild 1-3)/fever Hydrocodone Bitart/Acetaminophen (Acetaminophen/Hydrocodone 325-10 Mg Tab) 1 tab PO Q4H PRN PRN Reason: Pain (severe 7-10) Last Admin: 02/13/21 22:36 Dose: 1 tab Documented by: Aspirin (Aspirin 81 Mg Tab.Ec) 81 mg PO DAILY [facility] Last Admin: 02/15/21 08:50 Dose: 81 mg Documented by: Atorvastatin Calcium (Atorvastatin 10 Mg Tab) 10 mg PO DAILY [facility] Last Admin: 02/15/21 08:50 Dose: 10 mg Documented by: Dextrose/Water (50% Dextrose In Water 50 Ml Syringe) 25 ml IVPUSH ASDIRECTED PRN PRN Reason: Hypoglycemia BS<70 Duloxetine HCl (Duloxetine 30 Mg Cap) 60 mg PO DAILY [facility] Last Admin: 02/15/21 08:50 Dose: 60 mg Documented by: Famotidine (Famotidine 20 Mg Tab) 20 mg PO BEDTIME [facility] Last Admin: 02/14/21 20:53 Dose: 20 mg Documented by: Heparin Sodium (Porcine) (Heparin Sodium 5,000 Units/Ml Vial) 5,000 units SUBCUT Q8HR [facility] Last Admin: 02/15/21 05:36 Dose: 5,000 units Documented by: Sodium Chloride (Normal Saline) 1,000 mls @ 100 mls/hr IV ASDIRECTED [facility] Last Admin: 02/15/21 08:47 Dose: 100 mls/hr Documented by: Vancomycin HCl 1.25 gm/ Sodium (Chloride) 250 mls @ 167 mls/hr IV Q24H [facility] Last Infusion: 02/15/21 00:24 Dose: Infused Documented by: Ibuprofen (Ibuprofen 600 Mg Tab) 600 mg PO Q6H PRN PRN Reason: moderate pain Last Admin: 02/15/21 05:44 Dose: 600 mg Documented by: Insulin Glargine (Insulin Glarg,Human.Rec.Analog 100 Unit/Ml) 35 unit SUBCUT DAILY [facility] Last Admin: 02/15/21 08:51 Dose: 35 units Documented by: Insulin Human Lispro (Insulin Lispro 100 Units/Ml 3 Ml Vial) 0 unit SUBCUT WITHMEALSANDBED [facility]; Protocol Last Admin: 02/15/21 08:51 Dose: Not Given Documented by: Losartan Potassium (Losartan 25 Mg Tab) 25 mg PO DAILY [facility] Last Admin: 02/15/21 08:50 Dose: 25 mg Documented by: Ondansetron HCl (Ondansetron 4 Mg Tab.Dis) 4 mg PO Q6H PRN PRN Reason: nausea, able to take PO Sodium Chloride (Sodium Chloride 0.9% 10 Ml Syringe) 10 ml FLUSH ASDIRECTED PRN PRN Reason: Keep Vein Open Last Admin: 02/15/21 08:50 Dose: 10 ml Documented by: Tamsulosin HCl (Tamsulosin 0.4 Mg Cap.Er) 0.4 mg PO DAILY [facility] Last Admin: 02/15/21 08:50 Dose: 0.4 mg Documented by: Temazepam (Temazepam 15 Mg Cap) 15 mg PO BEDTIME PRN PRN Reason: Sleep Last Admin: 02/14/21 23:04 Dose: 15 mg Documented by: Vancomycin HCl (Pharmacy To Dose - Vancomycin) 1 dose .XX ASDIRECTED [facility] Discontinued Medications Hydromorphone HCl (Hydromorphone 0.5 Mg/0.5 Ml Syringe) 0.5 mg IVPUSH ONETIME ONE Stop: 02/13/21 01:36 Last Admin: 02/13/21 01:47 Dose: 0.5 mg Documented by: Hydromorphone HCl (Hydromorphone 0.5 Mg/0.5 Ml Syringe) 0.5 mg IVPUSH ONETIME ONE Stop: 02/13/21 03:12 Last Admin: 02/13/21 03:18 Dose: 0.5 mg Documented by: Sodium Chloride (Normal Saline) 1,000 mls @ 999 mls/hr IV .BOLUS ONE Stop: 02/13/21 03:00 Last Admin: 02/13/21 02:10 Dose: 999 mls/hr Documented by: Sodium Chloride (Normal Saline) 1,000 mls @ 999 mls/hr IV .BOLUS ONE Stop: 02/13/21 03:46 Last Admin: 02/13/21 03:56 Dose: 999 mls/hr Documented by: Vancomycin HCl 1.25 gm/ Sodium (Chloride) 250 mls @ 167 mls/hr IV ONETIME ONE Stop: 02/13/21 04:31 Last Admin: 02/13/21 03:15 Dose: 167 mls/hr Documented by: Piperacillin Sod/Tazobactam (Sod 2.25 gm/ Sodium Chloride) 50 mls @ 100 mls/hr IV Q6H [facility] Last Admin: 02/14/21 10:48 Dose: 100 mls/hr Documented by: Iopamidol (Iopamidol 612 Mg/Ml 100 Ml Bottle) 100 ml IVPUSH ONETIME ONE Stop: 02/13/21 01:17 Last Admin: 02/13/21 06:37 Dose: Not Given Documented by: Iopamidol (Iopamidol 612 Mg/Ml 50 Ml Sdv) 50 ml IVPUSH ONETIME ONE Stop: 02/13/21 01:44 Last Admin: 02/13/21 01:46 Dose: 50 ml Documented by: Lidocaine/Epinephrine (Lidocaine 1% With Epinephrine 1:100,000 20 Ml Mdv) 20 ml INJECT ONETIME ONE Stop: 02/13/21 03:11 Last Admin: 02/13/21 03:18 Dose: 20 ml Documented by: Morphine Sulfate (Morphine 2 Mg/Ml Syringe) 1 mg IVPUSH Q4H PRN PRN Reason: Pain (severe 7-10) - Exam General: Reports: Alert, Oriented Neck: Reports: Supple Lungs: Reports: Clear to Auscultation, Normal Respiratory Effort Cardiovascular: Reports: Regular Rate, Regular Rhythm GI/Abdominal Exam: Normal Bowel Sounds, Soft, Non-Tender Extremities: No Pedal Edema Skin: Reports: Warm, Other (posterior nec large induration with incision and packing)
== END 2021-02-15 12:02 | disposition home or self-care (01) | DRG 638 ==
LOC: DL.ED 00:49 → EEVIPCON 08:04 → DL.MS 08:04
PROVIDERS: ADMIT Internal Medicine; ATTEND Internal Medicine
DX: E11.628 Type 2 diabetes mellitus with other skin complications (principal); L03.811 Cellulitis of head [any part, except face]; L02.811 Cutaneous abscess of head [any part, except face]; N17.9 Acute kidney failure, unspecified; B95.62 Methicillin resistant Staphylococcus aureus infection as the cause of diseases classified elsewhere; E11.65 Type 2 diabetes mellitus with hyperglycemia; N18.30 Chronic kidney disease, stage 3 unspecified; E11.22 Type 2 diabetes mellitus with diabetic chronic kidney disease; F41.9 Anxiety disorder, unspecified; H54.7 Unspecified visual loss; Z20.822 Contact with and (suspected) exposure to COVID-19; E78.00 Pure hypercholesterolemia, unspecified; K59.09 Other constipation; E11.42 Type 2 diabetes mellitus with diabetic polyneuropathy; F32.A Depression, unspecified; K57.90 Diverticulosis of intestine, part unspecified, without perforation or abscess without bleeding; E66.9 Obesity, unspecified; F17.200 Nicotine dependence, unspecified, uncomplicated; Z98.890 Other specified postprocedural states; Z91.013 Allergy to seafood; Z91.030 Bee allergy status; Z79.82 Long term (current) use of aspirin; Z88.0 Allergy status to penicillin; Z79.4 Long term (current) use of insulin
CPT/HCPCS: 10060; 36415; 80048; 80053; 82947; 83605; 85025; 86140; 87040; 87070; 87077; 87186; 87205; 90686; 96365; 96366; 96375; 96376; 99284-25; A9270-GY; G0008; J1170; J1644; J1815-GY; J2543; J3370; J7030; J7050; Q9967; U0002

== ENCOUNTER 2021-12-26 20:17 | Emergency (ER) | payer MEDICAID ==
[2021-12-26] MEDS ORDERED: Doxycycline Monohydrate 100 MG Cap PO ONE (21:12)
[2021-12-26 21:23] VITALS: BP 150/82; PULSE 99
== END 2021-12-26 21:28 | disposition home or self-care (01) ==
LOC: DL.ED 20:17
DX: L02.811 Cutaneous abscess of head [any part, except face] (principal); E78.00 Pure hypercholesterolemia, unspecified; I10 Essential (primary) hypertension; E11.9 Type 2 diabetes mellitus without complications; E66.9 Obesity, unspecified; Z68.29 Body mass index [BMI] 29.0-29.9, adult; F17.210 Nicotine dependence, cigarettes, uncomplicated; Z91.041 Radiographic dye allergy status; Z91.013 Allergy to seafood; Z91.030 Bee allergy status; Z88.0 Allergy status to penicillin; Z79.899 Other long term (current) drug therapy; Z79.82 Long term (current) use of aspirin; Z79.4 Long term (current) use of insulin
CPT/HCPCS: 99282; A9270

== ENCOUNTER 2022-04-14 01:21 | Emergency (ER) | payer MEDICARE, MEDICAID ==
[2022-04-14 01:56] VITALS: BP 145/88; PULSE 96
[2022-04-14] MEDS ORDERED: Sodium Chloride 0.9% 1,000 ML IV ONE (01:59)
[2022-04-14 02:11] LABS: ANION GAP 18.3 mEq/L (7-13); CHLORIDE,CL 91 mmol/L (98-107); SODIUM,NA 123 mmol/L (136-145)
[2022-04-14 02:25] LABS: CORONAVIRUS COVID-19 NAA NEGATIVE (NEGATIVE)
[2022-04-14 02:28] LABS: ESTIMATED GFR 14 mL/min (>=60)
[2022-04-14] MEDS ORDERED: cefTRIAXone 2 GM Vial IVPUSH ONE (02:28)
[2022-04-14 02:47] LABS: AMPHETAMINES,URINE NEGATIVE (NEGATIVE); BARBITURATES,URINE NEGATIVE (NEGATIVE); BENZODIAZEPINE,URINE NEGATIVE (NEGATIVE); MDMA (ECSTASY), URINE NEGATIVE (NEGATIVE); METHADONE,URINE NEGATIVE (NEGATIVE); METHAMPHETAMINES,URINE NEGATIVE (NEGATIVE); OPIATES,URINE NEGATIVE (NEGATIVE); OXYCODONE,URINE NEGATIVE (NEGATIVE); PHENCYCLIDINE,URINE NEGATIVE (NEGATIVE); TCA,URINE NEGATIVE (NEGATIVE)
== END 2022-04-14 03:25 | disposition home or self-care (01) ==
LOC: DL.ED 01:21
DX: N39.0 Urinary tract infection, site not specified (principal); I10 Essential (primary) hypertension; E78.00 Pure hypercholesterolemia, unspecified; J45.909 Unspecified asthma, uncomplicated; E11.9 Type 2 diabetes mellitus without complications; E66.9 Obesity, unspecified; Z72.0 Tobacco use; Z91.013 Allergy to seafood; Z91.030 Bee allergy status; Z88.0 Allergy status to penicillin; Z88.8 Allergy status to other drugs, medicaments and biological substances; Z79.82 Long term (current) use of aspirin; Z79.84 Long term (current) use of oral hypoglycemic drugs; Z79.899 Other long term (current) drug therapy; Z20.822 Contact with and (suspected) exposure to COVID-19
CPT/HCPCS: 0240U; 36415; 80053; 80305; 81001; 82009; 82150; 83605; 83690; 83735; 84145; 85025; 87040; 87077; 87086; 87088; 87186; 96361; 96374; 99284; J0696; J7030

== ENCOUNTER 2022-05-05 17:28 | Inpatient (IN) | payer MEDICARE, MEDICAID ==
[2022-05-05] MEDS ORDERED: Meclizine 12.5 MG Tab PO ONE (18:07)
[2022-05-05] MEDS ORDERED: Sodium Chloride 0.9% 1,000 ML IV ONE (18:24)
[2022-05-05 19:17] LABS: ANION GAP 12.9 mEq/L (7-13)
[2022-05-05] MEDS ORDERED: Magnesium Sulfate/Water 2 GM in Premix Bag 1 BAG IV ONE ×4 (21:04)
[2022-05-05 21:21] LABS: CORONAVIRUS COVID-19 NAA NEGATIVE (NEGATIVE); RESPIRATORY SYNCYTIAL VIR NAA NEGATIVE (NEGATIVE)
[2022-05-05] MEDS ORDERED: Acetaminophen 325 MG Tab PO PRN (22:32)
[2022-05-05] MEDS ORDERED: Docusate Sodium 100 MG Cap PO PRN (22:32)
[2022-05-05] MEDS ORDERED: Ondansetron 4 MG Tab.DIS PO PRN (22:32)
[2022-05-05] MEDS ORDERED: 50% Dextrose in Water 50 ML Syringe IVPUSH PRN (22:46)
[2022-05-05] MEDS ORDERED: Glucagon,Human Recombinant 1 MG Vial IM PRN (22:46)
[2022-05-06] MEDS: Sodium Chloride 0.9% 1,000 ML IV SCH ×2 (04:39→23:54)
[2022-05-06 07:44] LABS: ANION GAP 13.9 mEq/L (7-13)
[2022-05-06] MEDS ORDERED: Magnesium Sulfate/Water 2 GM in Premix Bag 1 BAG IV ONE (08:00)
[2022-05-06] MEDS: Aspirin 81 MG Tab.EC PO SCH (08:46)
[2022-05-06] MEDS: Gabapentin 300 MG Cap PO SCH ×2 (08:46→20:16)
[2022-05-06] MEDS: Famotidine 20 MG Tab PO SCH ×2 (08:47→20:16)
[2022-05-06] MEDS: Finasteride 5 MG Tab PO SCH (08:47)
[2022-05-06] MEDS: atorvaSTATin 10 MG Tab PO SCH (08:47)
[2022-05-06] MEDS: Insulin Lispro 100 Units/ML 3 ML Vial SUBCUT SCH ×4 (08:49→21:34)
[2022-05-06] MEDS: Metoprolol Succinate 25 MG Tab.ER PO SCH (09:24)
[2022-05-06] MEDS: Folic Acid 1 MG Tab PO SCH (10:59)
[2022-05-06] MEDS ORDERED: diphenhydrAMINE 25 MG Tab PO ONE (16:44)
[2022-05-07 04:43] VITALS: PULSE 81
[2022-05-07 06:51] LABS: ANION GAP 13.3 mEq/L (7-13)
[2022-05-07 07:36] VITALS: BP 134/82
[2022-05-07] MEDS: Insulin Lispro 100 Units/ML 3 ML Vial SUBCUT SCH (08:20)
[2022-05-07] MEDS: atorvaSTATin 10 MG Tab PO SCH (08:21)
[2022-05-07] MEDS: Famotidine 20 MG Tab PO SCH (08:21)
[2022-05-07] MEDS: Finasteride 5 MG Tab PO SCH (08:21)
[2022-05-07] MEDS: Folic Acid 1 MG Tab PO SCH (08:21)
[2022-05-07] MEDS: Metoprolol Succinate 25 MG Tab.ER PO SCH (08:21)
[2022-05-07] MEDS: Aspirin 81 MG Tab.EC PO SCH (08:21)
[2022-05-07] MEDS: Gabapentin 300 MG Cap PO SCH (08:22)
== END 2022-05-07 10:18 | disposition home or self-care (01) | DRG 312 ==
LOC: DL.ED 17:28 → DL.MS 21:29 → DL.ED 21:50
PROVIDERS: ADMIT Internal Medicine; ATTEND Internal Medicine
PROC: 30233N1 Transfusion of Nonautologous Red Blood Cells into Peripheral Vein, Percutaneous Approach (ICD-10-PCS; principal; 2022-05-06)
DX: I95.2 Hypotension due to drugs (principal); H81.10 Benign paroxysmal vertigo, unspecified ear; I12.9 Hypertensive chronic kidney disease with stage 1 through stage 4 chronic kidney disease, or unspecified chronic kidney disease; R42 Dizziness and giddiness; D63.1 Anemia in chronic kidney disease; E11.649 Type 2 diabetes mellitus with hypoglycemia without coma; I95.1 Orthostatic hypotension; E86.0 Dehydration; D52.9 Folate deficiency anemia, unspecified; E11.22 Type 2 diabetes mellitus with diabetic chronic kidney disease; N18.9 Chronic kidney disease, unspecified; E83.42 Hypomagnesemia; N40.1 Benign prostatic hyperplasia with lower urinary tract symptoms; R33.8 Other retention of urine; F41.9 Anxiety disorder, unspecified; F32.A Depression, unspecified; E78.5 Hyperlipidemia, unspecified; K59.09 Other constipation; J45.909 Unspecified asthma, uncomplicated; E11.40 Type 2 diabetes mellitus with diabetic neuropathy, unspecified; D64.9 Anemia, unspecified; Z79.4 Long term (current) use of insulin; Z87.19 Personal history of other diseases of the digestive system; Z88.0 Allergy status to penicillin; Z68.32 Body mass index [BMI] 32.0-32.9, adult; Z91.030 Bee allergy status; Z91.013 Allergy to seafood; R19.7 Diarrhea, unspecified; Z20.822 Contact with and (suspected) exposure to COVID-19; Z79.2 Long term (current) use of antibiotics; Z79.1 Long term (current) use of non-steroidal anti-inflammatories (NSAID); Z90.89 Acquired absence of other organs; T50.995A Adverse effect of other drugs, medicaments and biological substances, initial encounter; Y92.89 Other specified places as the place of occurrence of the external cause; E11.9 Type 2 diabetes mellitus without complications; I10 Essential (primary) hypertension; E78.00 Pure hypercholesterolemia, unspecified; E66.9 Obesity, unspecified; Z79.82 Long term (current) use of aspirin; Z79.899 Other long term (current) drug therapy
CPT/HCPCS: 0241U; 36415; 36430; 70450; 80048; 80053; 82272; 82607; 82746; 82947; 83540; 83550; 83735; 84155; 84165; 85025; 86850; 86900; 86901; 86920; 86922; 87045; 87046; 87493; 87899; 93005; 93010; 96361; 96365; 99285; 99285-25; A9270-GY; J1815-GY; J3475; J7030; P9016

== ENCOUNTER 2022-08-23 23:48 | Emergency (ER) | payer MEDICARE, MEDICAID ==
[2022-08-24 00:21] VITALS: BP 144/82; PULSE 108
[2022-08-24 00:47] LABS: BILIRUBIN,URINE NEGATIVE (NEGATIVE); GLUCOSE,URINE >=1000 (NEGATIVE); KETONES,URINE NEGATIVE (NEGATIVE); LEUKOCYTE ESTERASE,URINE LARGE (NEGATIVE); NITRITE,URINE NEGATIVE (NEGATIVE); OCCULT BLOOD,URINE LARGE (NEGATIVE); PH,URINE 5.5 (5.0-9.0); PROTEIN,URINE 100 (NEGATIVE); UROBILINOGEN,URINE 0.2 mg/dL (0.2-1.0)
[2022-08-24 00:54] LABS: APPEARANCE,URINE CLOUDY (CLEAR); COLOR,URINE LIGHT YELLOW (YELLOW)
[2022-08-24 00:57] LABS: RBC,URINE 20-30 /HPF (0-5); WBC,URINE PACKED /HPF (0-5/HPF)
[2022-08-24 00:58] LABS: AMORPHOUS SEDIMENT,URINE FEW /HPF (NOT SEEN); BACTERIA,URINE MANY /HPF (0-FEW/HPF); EPITHELIAL CELLS,URINE RARE /HPF (NOT SEEN); MUCUS,URINE FEW /LPF (NOT SEEN)
[2022-08-24] MEDS ORDERED: Ciprofloxacin 500 MG Tab PO ONE (01:00)
== END 2022-08-24 01:24 | disposition home or self-care (01) ==
LOC: DL.ED 23:48
DX: N30.00 Acute cystitis without hematuria (principal); E78.00 Pure hypercholesterolemia, unspecified; I10 Essential (primary) hypertension; J45.909 Unspecified asthma, uncomplicated; E11.9 Type 2 diabetes mellitus without complications; E66.9 Obesity, unspecified; Z68.30 Body mass index [BMI] 30.0-30.9, adult; Z91.041 Radiographic dye allergy status; Z91.013 Allergy to seafood; Z88.0 Allergy status to penicillin; Z91.030 Bee allergy status; Z79.4 Long term (current) use of insulin; Z79.899 Other long term (current) drug therapy; Z79.82 Long term (current) use of aspirin
CPT/HCPCS: 51702; 81001; 99283; A9270-GY

== ENCOUNTER 2022-12-04 10:14 | Emergency (ER) | payer MEDICARE, MEDICAID ==
[2022-12-04 11:23] LABS: APPEARANCE,URINE CLOUDY (CLEAR); BILIRUBIN,URINE NEGATIVE (NEGATIVE); COLOR,URINE YELLOW (YELLOW); GLUCOSE,URINE 500 (NEGATIVE); KETONES,URINE NEGATIVE (NEGATIVE); LEUKOCYTE ESTERASE,URINE LARGE (NEGATIVE); NITRITE,URINE NEGATIVE (NEGATIVE); OCCULT BLOOD,URINE MODERATE (NEGATIVE); PROTEIN,URINE >=300 (NEGATIVE); UROBILINOGEN,URINE 0.2 mg/dL (0.2-1.0)
[2022-12-04] MEDS ORDERED: Take Home: Levofloxacin 500 MG Tab, 3 Tab Pack PO ONE (11:27)
[2022-12-04 11:32] VITALS: BP 166/86; PULSE 100
[2022-12-04 11:36] LABS: AMORPHOUS SEDIMENT,URINE FEW /HPF (NOT SEEN); BACTERIA,URINE MANY /HPF (0-FEW/HPF); EPITHELIAL CELLS,URINE FEW /HPF (NOT SEEN); MUCUS,URINE FEW /LPF (NOT SEEN); WBC,URINE >100 /HPF (0-5/HPF)
== END 2022-12-04 11:58 | disposition home or self-care (01) ==
LOC: DL.ED 10:14
DX: T83.021A Displacement of indwelling urethral catheter, initial encounter (principal); T83.511A Infection and inflammatory reaction due to indwelling urethral catheter, initial encounter; N39.0 Urinary tract infection, site not specified; N17.9 Acute kidney failure, unspecified; I12.9 Hypertensive chronic kidney disease with stage 1 through stage 4 chronic kidney disease, or unspecified chronic kidney disease; E11.22 Type 2 diabetes mellitus with diabetic chronic kidney disease; N18.9 Chronic kidney disease, unspecified; E78.00 Pure hypercholesterolemia, unspecified; J45.909 Unspecified asthma, uncomplicated; E11.40 Type 2 diabetes mellitus with diabetic neuropathy, unspecified; E66.9 Obesity, unspecified; Z68.28 Body mass index [BMI] 28.0-28.9, adult; Z91.013 Allergy to seafood; Z91.041 Radiographic dye allergy status; Z88.0 Allergy status to penicillin; Z91.030 Bee allergy status; Z79.4 Long term (current) use of insulin; Z79.82 Long term (current) use of aspirin; Z79.899 Other long term (current) drug therapy
CPT/HCPCS: 51702; 81001; 87086; 87088; 87186; 99283; A9270

== ENCOUNTER 2023-04-07 14:20 | Emergency (ER) | payer MEDICAID, MEDICARE ==
[2023-04-07 15:15] VITALS: BP 166/123; PULSE 109
== END 2023-04-07 16:17 | disposition home or self-care (01) ==
LOC: DL.ED 14:20
DX: T83.031A Leakage of indwelling urethral catheter, initial encounter (principal); I10 Essential (primary) hypertension; E78.00 Pure hypercholesterolemia, unspecified; E11.9 Type 2 diabetes mellitus without complications; E66.9 Obesity, unspecified; F17.210 Nicotine dependence, cigarettes, uncomplicated; Z68.29 Body mass index [BMI] 29.0-29.9, adult; Z79.82 Long term (current) use of aspirin; Z79.899 Other long term (current) drug therapy; Z88.0 Allergy status to penicillin; Z91.030 Bee allergy status; Z91.013 Allergy to seafood; Z88.8 Allergy status to other drugs, medicaments and biological substances
CPT/HCPCS: 51702; 99283

== ENCOUNTER 2023-04-23 17:28 | Emergency (ER) | payer MEDICARE ==
[2023-04-23 19:44] VITALS: BP 161/86; PULSE 98
== END 2023-04-23 19:34 | disposition home or self-care (01) ==
LOC: DL.ED 17:28
DX: T83.031A Leakage of indwelling urethral catheter, initial encounter (principal)
CPT/HCPCS: 51702; 99283

== ENCOUNTER 2023-05-09 10:03 | Inpatient (IN) | payer MEDICARE ==
[2023-05-09 10:28] LABS: HEMATOCRIT 37.7 % (40.0-54.0); HEMOGLOBIN 12.9 g/dL (14.0-18.0); MEAN CORPUSCULAR HEMOGLOBIN 29.3 pg (27.0-34.0); MEAN CORPUSCULAR HGB CONC 34.2 g/dL (33.0-35.0); MEAN CORPUSCULAR VOLUME 85.7 fL (80-100); PLATELET COUNT,PLT 268 10^3/uL (150-450); WHITE BLOOD CELL COUNT,WBC 10.6 10^3/uL (5.0-10.0)
[2023-05-09] MEDS: HYDROmorphone 0.5 MG/0.5 ML Syringe IVPUSH ONE (10:30)
[2023-05-09] MEDS: Ketorolac 30 MG/ML SDV IVPUSH ONE (10:30)
[2023-05-09] MEDS: Sodium Chloride 0.9% 10 ML Syringe FLUSH PRN (10:31)
[2023-05-09] MEDS: Sodium Chloride 0.9% 1,000 ML IV SCH (10:31)
[2023-05-09 10:44] LABS: BASOPHILS PERCENT AUTO 0.3 % (0.0-1.0); EOSINOPHILS PERCENT AUTO 5.5 % (1.0-3.0); NEUTROPHILS PERCENT AUTO 54.2 % (42.2-75.2)
[2023-05-09 11:15] LABS: A/G RATIO 0.43; ANION GAP 14.4 mEq/L (7-13); BILIRUBIN TOTAL 0.2 mg/dL (0.2-1.0); BUN/CREATININE RATIO 11.5 (No establ ref range); CALCIUM 7.7 mg/dL (8.5-10.1); CREATININE 3.49 mg/dL (0.70-1.30); EST CRCL DRUG DOSING (CG) 20.78 mL/min; POTASSIUM,K 4.4 mmol/L (3.5-5.1); PROTEIN TOTAL,TP 6.7 g/dL (6.4-8.2)
[2023-05-09] MEDS ORDERED: 50% Dextrose in Water 50 ML Syringe IVPUSH PRN ×2 (11:20→13:02)
[2023-05-09] MEDS ORDERED: Glucagon,Human Recombinant 1 MG Vial IM PRN ×2 (11:20→13:02)
[2023-05-09 11:41] LABS: BAND PERCENT MAN 1 %; SEG NEUTROPHILS PERCENT MAN 52 % (42-75)
[2023-05-09 11:42] LABS: BASOPHILS PERCENT MAN 1; EOSINOPHILS PERCENT MAN 6 % (1-3); LYMPHOCYTES PERCENT MAN 33 % (20-50); MONOCYTES PERCENT MAN 6 % (2-8)
[2023-05-09] MEDS: Insulin Regular, Human 100 Units/ML 3 ML Vial IV ONE (11:56)
[2023-05-09 12:25] LABS: APPEARANCE,URINE CLOUDY (CLEAR); BILIRUBIN,URINE NEGATIVE (NEGATIVE); COLOR,URINE YELLOW (YELLOW); GLUCOSE,URINE 500 (NEGATIVE); KETONES,URINE NEGATIVE (NEGATIVE); LEUKOCYTE ESTERASE,URINE LARGE (NEGATIVE); NITRITE,URINE NEGATIVE (NEGATIVE); OCCULT BLOOD,URINE LARGE (NEGATIVE); PROTEIN,URINE >=300 (NEGATIVE); UROBILINOGEN,URINE 0.2 mg/dL (0.2-1.0)
[2023-05-09] MEDS ORDERED: Bisacodyl 10 MG Supp RECTAL PRN (12:47)
[2023-05-09 12:49] LABS: BACTERIA,URINE MODERATE /HPF (0-FEW/HPF); EPITHELIAL CELLS,URINE RARE /HPF (NOT SEEN); WBC,URINE 50-75 /HPF (0-5/HPF)
[2023-05-09] MEDS ORDERED: Metoprolol Tartrate 5 MG/5 ML SDV IVPUSH PRN (12:49)
[2023-05-09] MEDS ORDERED: hydrALAZINE 20 MG/ML SDV IVPUSH PRN (12:49)
[2023-05-09] MEDS ORDERED: Albuterol/Ipratropium 3.0-0.5 MG/3 ML Neb Soln NEB PRN (12:50)
[2023-05-09] MEDS ORDERED: Acetaminophen 325 MG Tab PO PRN (12:50)
[2023-05-09] MEDS ORDERED: Acetaminophen/oxyCODONE 325-5 MG Tab PO PRN (12:50)
[2023-05-09] MEDS ORDERED: Naloxone 2 MG/2 ML Syringe IVPUSH PRN (12:50)
[2023-05-09] MEDS ORDERED: HYDROmorphone 0.5 MG/0.5 ML Syringe IVPUSH PRN (12:50)
[2023-05-09] MEDS ORDERED: Zolpidem 5 MG Tab PO PRN (13:26)
[2023-05-09] MEDS: Magnesium Sulfate/D5W 1 GM/100 ML BAG IV ONE (14:16)
[2023-05-09] MEDS: cefTRIAXone 1 GM Vial IVPUSH SCH (14:27)
[2023-05-09] MEDS: Lactulose Soln 10 GM/15 ML 30 ML UD Cup PO ONE (14:29)
[2023-05-09] MEDS: Bisacodyl 10 MG Supp RECTAL ONE (14:31)
[2023-05-09] MEDS: Insulin Lispro 100 Units/ML 3 ML Vial SUBCUT SCH (14:42)
[2023-05-09 15:03] LABS: AMPHETAMINES,URINE NEGATIVE (NEGATIVE); BARBITURATES,URINE NEGATIVE (NEGATIVE); BENZODIAZEPINE,URINE NEGATIVE (NEGATIVE); MDMA (ECSTASY), URINE NEGATIVE (NEGATIVE); METHADONE,URINE NEGATIVE (NEGATIVE); METHAMPHETAMINES,URINE POSITIVE (NEGATIVE); OPIATES,URINE NEGATIVE (NEGATIVE); OXYCODONE,URINE NEGATIVE (NEGATIVE); PHENCYCLIDINE,URINE NEGATIVE (NEGATIVE); TCA,URINE NEGATIVE (NEGATIVE)
[2023-05-09] MEDS: Metoclopramide 10 MG/2 ML SDV IVPUSH PRN (16:31)
[2023-05-09] MEDS: Nicotine 14 MG/24 Hr Patch TRDERM SCH (22:18)
[2023-05-09] MEDS: Gabapentin 300 MG Cap PO SCH (22:18)
[2023-05-10] MEDS: Lactulose Soln 10 GM/15 ML 30 ML UD Cup PO PRN (02:40)
[2023-05-10 06:38] LABS: BASOPHILS PERCENT AUTO 0.3 % (0.0-1.0); EOSINOPHILS PERCENT AUTO 5.2 % (1.0-3.0); HEMATOCRIT 35.3 % (40.0-54.0); HEMOGLOBIN 11.9 g/dL (14.0-18.0); LYMPHOCYTES PERCENT AUTO 25.3 % (20.5-50.1); MEAN CORPUSCULAR HEMOGLOBIN 29.2 pg (27.0-34.0); MEAN CORPUSCULAR HGB CONC 33.7 g/dL (33.0-35.0); MEAN CORPUSCULAR VOLUME 86.5 fL (80-100); MONOCYTES PERCENT AUTO 6.7 % (2-8); NEUTROPHILS PERCENT AUTO 62.5 % (42.2-75.2); PLATELET COUNT,PLT 256 10^3/uL (150-450); RED BLOOD CELL COUNT 4.08 10^6/uL (4.6-6.2); WHITE BLOOD CELL COUNT,WBC 10.1 10^3/uL (5.0-10.0)
[2023-05-10 07:09] LABS: ALBUMIN 1.7 g/dL (3.4-5.0); ANION GAP 13.4 mEq/L (7-13); BILIRUBIN TOTAL 0.2 mg/dL (0.2-1.0); BUN/CREATININE RATIO 12.1 (No establ ref range); C-REACTIVE PROTEIN 1.49 ng/dL (<=0.50); CALCIUM 7.8 mg/dL (8.5-10.1); CREATININE 2.89 mg/dL (0.70-1.30); EST CRCL DRUG DOSING (CG) 25.1 mL/min; POTASSIUM,K 4.4 mmol/L (3.5-5.1); PROTEIN TOTAL,TP 5.9 g/dL (6.4-8.2)
[2023-05-10 07:13] LABS: A/G RATIO 0.4
[2023-05-10] MEDS: Saccharomyces Boulardii (Probiotic) 250 MG Cap PO SCH (09:07)
[2023-05-10 19:15] VITALS: BP 167/86; PULSE 98
[2023-05-10] MEDS: FLU (Fluarix Quad) QS2023-24(6MOS UP)/PF 60 MCG/0.5 ML Syringe IM ONE (19:16)
== END 2023-05-10 19:40 | disposition home or self-care (01) | DRG 699 ==
LOC: DL.ED 10:03 → DL.MS 12:02
PROVIDERS: ADMIT Internal Medicine; ATTEND Internal Medicine
DX: N13.9 Obstructive and reflux uropathy, unspecified (principal); I10 Essential (primary) hypertension; E87.1 Hypo-osmolality and hyponatremia; N17.9 Acute kidney failure, unspecified; K56.7 Ileus, unspecified; T83.511A Infection and inflammatory reaction due to indwelling urethral catheter, initial encounter; N39.0 Urinary tract infection, site not specified; E78.5 Hyperlipidemia, unspecified; K21.9 Gastro-esophageal reflux disease without esophagitis; Z91.041 Radiographic dye allergy status; N31.9 Neuromuscular dysfunction of bladder, unspecified; R33.9 Retention of urine, unspecified; M19.90 Unspecified osteoarthritis, unspecified site; K40.90 Unilateral inguinal hernia, without obstruction or gangrene, not specified as recurrent; K59.09 Other constipation; E83.42 Hypomagnesemia; D72.829 Elevated white blood cell count, unspecified; B96.89 Other specified bacterial agents as the cause of diseases classified elsewhere; N18.9 Chronic kidney disease, unspecified; D63.1 Anemia in chronic kidney disease; E66.9 Obesity, unspecified; F17.210 Nicotine dependence, cigarettes, uncomplicated; F41.9 Anxiety disorder, unspecified; F32.A Depression, unspecified; I12.9 Hypertensive chronic kidney disease with stage 1 through stage 4 chronic kidney disease, or unspecified chronic kidney disease; E78.00 Pure hypercholesterolemia, unspecified; E11.22 Type 2 diabetes mellitus with diabetic chronic kidney disease; J45.909 Unspecified asthma, uncomplicated; E11.65 Type 2 diabetes mellitus with hyperglycemia; E87.8 Other disorders of electrolyte and fluid balance, not elsewhere classified; E11.40 Type 2 diabetes mellitus with diabetic neuropathy, unspecified; Z88.0 Allergy status to penicillin; Z88.8 Allergy status to other drugs, medicaments and biological substances; Z91.013 Allergy to seafood; Z91.030 Bee allergy status; Z90.89 Acquired absence of other organs; Z68.29 Body mass index [BMI] 29.0-29.9, adult; Z79.4 Long term (current) use of insulin; Z79.82 Long term (current) use of aspirin; Z79.899 Other long term (current) drug therapy
CPT/HCPCS: 36415; 71045; 74176; 80053; 81001; 82947; 83605; 83735; 85025; 93005; 93010; 99284; J1170; J1815; J1885; J3475; J7030; 80305-QW; 86140; 87086; 90686; 99222; 99238; A9270-GY; G0008; J0696; J2765; J3490

== ENCOUNTER 2023-06-22 21:48 | Emergency (ER) | payer MEDICAID, MEDICARE ==
[2023-06-22 22:44] VITALS: BP 175/106; PULSE 101
[2023-06-22 22:45] LABS: APPEARANCE,URINE CLOUDY (CLEAR); BILIRUBIN,URINE NEGATIVE (NEGATIVE); COLOR,URINE YELLOW (YELLOW); GLUCOSE,URINE 100 (NEGATIVE); KETONES,URINE NEGATIVE (NEGATIVE); LEUKOCYTE ESTERASE,URINE LARGE (NEGATIVE); NITRITE,URINE NEGATIVE (NEGATIVE); OCCULT BLOOD,URINE MODERATE (NEGATIVE); PH,URINE 6.5 (5.0-9.0); PROTEIN,URINE >=300 (NEGATIVE); UROBILINOGEN,URINE 0.2 mg/dL (0.2-1.0)
[2023-06-22 22:58] LABS: BACTERIA,URINE MANY /HPF (0-FEW/HPF); EPITHELIAL CELLS,URINE RARE /HPF (NOT SEEN); RBC,URINE SEMI-PACKED /HPF (0-5); WBC,URINE PACKED /HPF (0-5/HPF)
== END 2023-06-22 23:08 | disposition home or self-care (01) ==
LOC: DL.ED 21:48
DX: T83.021A Displacement of indwelling urethral catheter, initial encounter (principal); N39.0 Urinary tract infection, site not specified; I10 Essential (primary) hypertension; E78.00 Pure hypercholesterolemia, unspecified; E11.9 Type 2 diabetes mellitus without complications; E66.9 Obesity, unspecified; Z88.8 Allergy status to other drugs, medicaments and biological substances; Z86.19 Personal history of other infectious and parasitic diseases; Z91.013 Allergy to seafood; Z91.030 Bee allergy status; Z91.041 Radiographic dye allergy status; Z68.28 Body mass index [BMI] 28.0-28.9, adult
CPT/HCPCS: 51702; 81001; 87086; 87088; 87186; 99283

== ENCOUNTER 2023-08-02 08:49 | Emergency (ER) | payer MEDICARE ==
[2023-08-02 09:25] VITALS: BP 168/93; PULSE 109
[2023-08-02 09:26] LABS: APPEARANCE,URINE TURBID (CLEAR); BILIRUBIN,URINE NEGATIVE (NEGATIVE); COLOR,URINE YELLOW (YELLOW); GLUCOSE,URINE 500 (NEGATIVE); KETONES,URINE NEGATIVE (NEGATIVE); LEUKOCYTE ESTERASE,URINE LARGE (NEGATIVE); NITRITE,URINE POSITIVE (NEGATIVE); OCCULT BLOOD,URINE LARGE (NEGATIVE); PH,URINE 6.5 (5.0-9.0); PROTEIN,URINE >=300 (NEGATIVE); UROBILINOGEN,URINE 0.2 mg/dL (0.2-1.0)
[2023-08-02 09:49] LABS: BACTERIA,URINE MANY /HPF (0-FEW/HPF); EPITHELIAL CELLS,URINE NOT SEEN /HPF (NOT SEEN); WBC,URINE PACKED /HPF (0-5/HPF)
== END 2023-08-02 09:44 | disposition home or self-care (01) ==
LOC: DL.ED 08:49
DX: T83.038A Leakage of other urinary catheter, initial encounter (principal); N39.0 Urinary tract infection, site not specified; I10 Essential (primary) hypertension; J45.909 Unspecified asthma, uncomplicated; E11.9 Type 2 diabetes mellitus without complications; E66.9 Obesity, unspecified; Z68.29 Body mass index [BMI] 29.0-29.9, adult; Z79.899 Other long term (current) drug therapy; Z88.0 Allergy status to penicillin; Z91.013 Allergy to seafood; Z91.030 Bee allergy status; Z88.8 Allergy status to other drugs, medicaments and biological substances
CPT/HCPCS: 51702; 81001; 87086; 87088; 87186; 99283; 99284

== ENCOUNTER 2024-01-16 14:06 | Emergency (ER) | payer MEDICARE ==
[2024-01-16 14:59] LABS: BASOPHILS PERCENT AUTO 0.2 % (0.0-1.0); EOSINOPHILS PERCENT AUTO 4.3 % (1.0-3.0); HEMATOCRIT 32.9 % (40.0-54.0); LYMPHOCYTES PERCENT AUTO 16.1 % (20.5-50.1); MEAN CORPUSCULAR HGB CONC 33.4 g/dL (33.0-35.0); MEAN CORPUSCULAR VOLUME 89.6 fL (80-100); MONOCYTES PERCENT AUTO 9.6 % (2-8); NEUTROPHILS PERCENT AUTO 69.8 % (42.2-75.2); PLATELET COUNT,PLT 282 10^3/uL (150-450); RED BLOOD CELL COUNT 3.67 10^6/uL (4.6-6.2); WHITE BLOOD CELL COUNT,WBC 9.8 10^3/uL (5.0-10.0)
[2024-01-16 15:08] LABS: PROTHROMBIN TIME 9.9 SEC (9.0-12.0); PTT,PARTIAL THROMBOPLSTIN TIME 28.9 SEC (22.0-34.0)
[2024-01-16 15:12] LABS: ALBUMIN 2.2 g/dL (3.4-5.0); ANION GAP 17.7 mEq/L (7-13); BILIRUBIN TOTAL 0.2 mg/dL (0.2-1.0); BUN/CREATININE RATIO 10.3 (No establ ref range); CALCIUM 8.5 mg/dL (8.5-10.1); CREATININE 4.86 mg/dL (0.70-1.30); EST CRCL DRUG DOSING (CG) 14.73 mL/min; MAGNESIUM 1.4 mg/dL (1.8-2.4); POTASSIUM,K 4.7 mmol/L (3.5-5.1); PROTEIN TOTAL,TP 6.9 g/dL (6.4-8.2)
[2024-01-16 15:15] LABS: A/G RATIO 0.47
[2024-01-16 16:58] LABS: APPEARANCE,URINE CLOUDY (CLEAR); BILIRUBIN,URINE NEGATIVE (NEGATIVE); COLOR,URINE YELLOW (YELLOW); GLUCOSE,URINE NEGATIVE (NEGATIVE); KETONES,URINE NEGATIVE (NEGATIVE); LEUKOCYTE ESTERASE,URINE LARGE (NEGATIVE); NITRITE,URINE NEGATIVE (NEGATIVE); OCCULT BLOOD,URINE MODERATE (NEGATIVE); PROTEIN,URINE >=300 (NEGATIVE); UROBILINOGEN,URINE 0.2 mg/dL (0.2-1.0)
[2024-01-16] MEDS ORDERED: Naloxone 2 MG/2 ML Syringe IVPUSH PRN ×2 (17:01→17:07)
[2024-01-16] MEDS ORDERED: fentaNYL 250 MCG/5 ML SDV IM ONE ×2 (17:01→17:07)
[2024-01-16 17:06] LABS: BACTERIA,URINE MANY /HPF (0-FEW/HPF); EPITHELIAL CELLS,URINE FEW /HPF (NOT SEEN); RBC,URINE 0-5 /HPF (0-5); WBC,URINE >100 /HPF (0-5/HPF)
[2024-01-16] MEDS: fentaNYL 100 MCG/2 ML SDV IVPUSH ONE (17:22)
[2024-01-16 17:31] VITALS: BP 166/90; PULSE 87
[2024-01-16] MEDS: Acetaminophen 500 MG Tab PO ONE (17:38)
[2024-01-16] MEDS: cefTRIAXone 2 GM in Sodium Chloride 0.9% 100 ML IV ONE (18:39)
== END 2024-01-16 18:50 ==
LOC: DL.ED 14:06
DX: N39.0 Urinary tract infection, site not specified (principal); N17.9 Acute kidney failure, unspecified; N13.30 Unspecified hydronephrosis; K46.9 Unspecified abdominal hernia without obstruction or gangrene; F17.210 Nicotine dependence, cigarettes, uncomplicated; I10 Essential (primary) hypertension; E11.9 Type 2 diabetes mellitus without complications; E66.9 Obesity, unspecified; Z88.0 Allergy status to penicillin; Z91.030 Bee allergy status; Z91.013 Allergy to seafood; Z91.018 Allergy to other foods
CPT/HCPCS: 36415; 74176; 76870; 80053; 81001; 82947; 83605; 83735; 83880; 85025; 85610; 85730; 87040; 87086; 93005; 96374; 96375; 99285; A9270; J0696; J3490; 93010